=== PATIENT | male | born 1945 | race Caucasian/White ===

== ENCOUNTER 2016-10-06 10:53 | Outpatient (CLI) | payer MEDICARE, BC ==
[~2016-10-06] VITALS: Ht 170.2 cm; Wt 113.6 kg
--- NOTE | ~2016-10-06 | HEMODYNAMI ---
PATIENT:IONA GREER MEDICAL RECORD: [id number] : 49 LOCATION:D.CAT ADMISSION DATE: 10/06/16 Generatedon:10/06/201613:47 Patient name: IONA GREER Patient #: [id number] : 1945 Date of study: 10/06/2016 Page: Of Hemodynamic Procedure Report Patient Data Patient Demographics Procedure consent was obtained First Name: IONA Gender: Male Last Name: ZOEY : 1945 [facility] Initial: S Age: 71 year(s) Patient #: [id number] Race: SSN: [id number] Additional ID: [id number] Contact details Address: [address] [place] [address] [address] State: [place] City: [place] Zip code: [address] Admission Admission Data Admission Date: 10/06/2016 Admission Time: 10:53 Arrival Date: 10/06/2016 Arrival Time: 13:00 Admit Source: Other Insurance Payor: Medicare Height (in.): 67 BSA: 2.28 (m2) Height (cm.): 170.18 BMI: 41.66 (kg/m2) Weight (lbs.): 266 Weight (kg.): 120.66 Lab Results Lab Result Date: 10/06/2016 Lab Result Time: 0:00 Biochemistry Name Units Result Min Max BUN mg/dl 42 --(----)-* 7 18 Creatinine mg/dl 1.8 --(----)-* 0.6 1.3 CBC Name Units Result Min Max Hemoglobin g/dl 15.7 --(--*-)-- 13.5 17.5 Procedure Procedure Types Cath Procedure Diagnostic Procedure C [facility] w/Coronaries Miscellaneous Procedures Moderate Sedation up to 30 minutes Procedure Description Procedure Date Procedure Date: 10/06/2016 Procedure Start Time: 13:30 Procedure End Time: 13:45 Procedure Staff Name Function Micha Chaparro MD Performing Physician Peyton Keyes RT Scrub Christian Seals RN Nurse Ami Matthews RT Monitor Indication Angina Procedure Data Cath Procedure Fluoroscopy Diagnostic fluoroscopy Total fluoroscopy Time: 1.4 time: 1.4 min min Diagnostic fluoroscopy Total fluoroscopy dose: dose: 261.6 mGy 261.6 mGy Contrast Material Contrast Material Type Amount (ml) Isovue 370 51 Entry Location Entry Primary Successful Side Size Upsize Upsize Entry Closure Alexandre ccessful Closure Location (Fr) 1 (Fr) 2 (Fr) Remarks Device Remarks Radial Right 6 Fr Mechanical artery Short Compression Estimated blood loss: 5 ml Diagnostic catheters Device Type Used For End Catheter Placement Terumo 5Fr Anthony 110cm Multi-vessel catheter Angiography Procedure Complications No complications Procedure Medications Medication Administration Route Dosage Oxygen NC 2 l/min 0.9% NaCl I.V. 100 ml/hr Heparin Flush Bag added to field 2 bags (1000units/500ml NS) Lidocaine 2% added to field 20 Radial Cocktail added to field 1 syringe (Verapomil 2mg/Nitro 400mcg/Heparin 1500units) Versed I.V. 1 mg Fentanyl I.V. 50 mcg Radial Cocktail I.A. 1 syringe (Verapomil 2mg/Nitro 400mcg/Heparin 1500units) Versed I.V. 1 mg Fentanyl I.V. 50 mcg Hemodynamics Rest BSA: 2.28 (m2) HGB: 15.7 (g/dl) O2 Consumption: Estimated: 260.52 (ml/min) O2 Co nsumption indexed: Estimated:114.26 (ml/min/m) Heart Rate: 66 (bpm) Pressure Samples Time Site Value (mmHg) Purpose Heart Use Rate(bpm) 13:34 LV 114/3,16 Snapshot 70 13:35 AO 99/61(75) Pullback 74 13:35 LV 120/2,17 Pullback 74 Gradients Valve Time Site 1 Site 2 Mean SEP/DFP Peak To Heart Use (mmHg) (sec/min) Peak Rate (mmHg) (bpm) Aortic 13:35 LV AO 17 8 21 74 120/2,17 99/61(75) Calculations Valve P-P Mean Valve Index Valve Source Name Gradient Area Flow (cm2) Aortic 21 17 21 17 Snapshots Pre Cath Intra NCS Post Cath Vital Signs Time Heart Resp SPO2 NIBP (mmHg) Rhythm Pain Sedation Rate (ipm) (%) Status Level (bpm) 13:16:58 75 15 96 141/82(119) NSR 0 (11) 10(A) , No pain 13:21:22 64 16 94 130/72(109) NSR 0 (11) 10(A) , No pain 13:25:43 66 13 90 120/70(97) NSR 0 (11) 10(A) , No pain 13:30:05 65 16 93 118/69(96) NSR 0 (11) 9(A) , No pain 13:34:25 71 18 91 105/61(85) NSR 0 (11) 9(A) , No pain 13:38:41 69 14 91 112/68(94) NSR 0 (11) 9(A) , No pain 13:42:59 69 20 92 124/72(105) NSR 0 (11) 10(A) , No pain Medications Time Medication Route Dose Verified Delivered Reason Notes Eff ectiveness by by 13:15:57 Oxygen NC 2 l/min Imcha Buffie used for Shankar Seals RN procedure 13:16:15 0.9% NaCl I.V. 100 Micha Buffie used for ml/hr Shankar Seals director river restoration 13:16:35 Heparin Flush added 2 bags Micha Buffie used for Bag to Shankar Seals RN procedure (1000units/500ml field NS) 13:16:47 Lidocaine 2% added 20ml Micha Buffie used for to vial Shankar Seals director river restoration field 13:16:57 Radial Cocktail added 1 Micha Buffie used for (Verapomil to syringe Shankar Seals RN procedure 2mg/Nitro field 400mcg/Heparin 1500units) 13:24:31 Fentanyl I.V. 50 mcg Buffie Buffie for Bozena Seals RN sedation 13:24:54 Versed I.V. 1 mg Buffie Buffie for Bozena RN Seals RN sedation 13:33:58 Radial Cocktail I.A. 1 Micha Micha used for (Verapomil syringe Shankar Chaparro MD procedure 2mg/Nitro 400mcg/Heparin 1500units) 13:35:44 Versed I.V. 1 mg Buffie Buffie for Bozena RN Seals RN sedation 13:35:50 Fentanyl I.V. 50 mcg Buffie Buffie for Seals RN Seals RN sedation Procedure Log Time Note 12:50:49 Buffie Seals RN sent for patient. Start room use. 13:01:11 Informed consent obtained and on chart 13:01:14 Diagnostic Cath Status : Elective 13::34 Indication : Angina 13:01:53 Patient Height : 170.18 cm 13:02:44 Patient Weight : 120.66 kg 13:02:50 Admit Source: Other 13:03:28 Arrival Date: 10/06/2016 1:00:00 PM 13:03:36 Insurance Payor : Medicare 13:07: Lab Result : Hemoglobin 15.7 g/dl 13:: Lab Result : BUN 42 mg/dl 13:: Lab Result : Creatinine 1.8 mg/dl 13::30 Time tracking: Regular hours 13::34 Plan of Care:Hemodynamics will remain stable., Cardiac rhythm will remain stable., Comfort level will be maintained., Respiratory function will remain adequate., Patient/ family verbilizes understanding of procedure., Procedure tolerated without complication., Recovers from procedure without complications.. 13:15:40 Vital chart was started 13:15:57 Oxygen 2 l/min NC was administered by Christian Seals RN; used for procedure; 13:16:15 0.9% NaCl 100 ml/hr I.V. was administered by Christian Seals RN; used for procedure; 13:16:35 Heparin Flush Bag (1000units/500ml NS) 2 bags added to field was administered by Christian Seals RN; used for procedure; 13:16:47 Lidocaine 2% 20ml vial added to field was administered by Christian Seals RN; used for procedure; 13:16:57 Radial Cocktail (Verapomil 2mg/Nitro 400mcg/Heparin 1500units) 1 syringe added to field was administered by Christian Seals RN; used for procedure; 13:22:44 Patient received from Pre/Post Procedure Room to [facility] 3 Alert and oriented. Tansferred to table in Supine position. 13:22:45 Warm blankets applied, and chinmay hugger turned on for patient comfort. 13:22:46 Correct patient and procedure confirmed by team. 13:22:46 ECG and BP/O2 sat monitors applied to patient. 13:22:48 Baseline sample Acquired. 13:22:52 Rhythm: sinus rhythm 13:22:54 Full Disclosure recording started 13:23:06 H&P Date Dictated: 09/14/2016 Within 30 days and on chart., H&P Addendum completed by physician on day of procedure. (MUST COMPLETE FOR ALL OUTPATIENTS). 13:23:07 Pre-procedure instructions explained to patient. 13:23:08 Pre-op teaching completed and patient verbalized understanding. 13:23:09 Family in waiting room. 13:23:10 Patient NPO since Midnight. 13:23:18 Is the patient allergic to Iodine/contrast media? No. 13:23:22 Was the patient premedicated? No 13:23:56 Is patient on blood thinner?No 13:23:59 Patient diabetic? Yes. 13:24:00 If diabetic: On Metformin? Yes 13:24:05 If on Metformin: Last Dose? 10/03/2016 13:24:09 Previous problem with sedation/anesthesia? No ? 13:24:12 Snore? Yes 13:24:13 Sleep apnea? Yes 13:24:13 Deviated septum? No 13:24:15 Opens mouth fully? Yes 13:24:16 Sticks out tongue? Yes 13:24:18 Airway obstruction? No ? 13:24:21 Dentures? No ? 13:24:24 Injector settings: Ml/sec: 5, Volume: 15, 13:24:25 Pre procedure: right dorsailis pedis pulse 1+ Palpable, but thready & weak; easily obliterated 13:24:27 Patient pain scale 0/10 ?. 13:24:31 Fentanyl 50 mcg I.V. was administered by Christian Seals RN; for sedation; 13:24:35 IV patent on arrival in left forearm with 0.9% NaCl at KVO. 13:24:37 Lab results completed and on chart. 13:24:42 Right Radial & Right Groin area was prepped with chlora-prep and draped in sterile fashion 13:24:43 Alarms reviewed by R. N. 13:24:44 Sharps counted by scrub and verified by R.N. 13:24:46 Physician arrived 13:24:46 --------ALL STOP TIME OUT------ 13:24:46 Final Timeout: patient, procedure, and site verified with staff and physician. All members of the team are in agreement. 13:24:49 Right Radial & Right Groin site verified by team. 13:24:53 Physical assessment completed. ASA score P 2 - A patient with mild systemic disease as per Micha Chaparro MD. 13:24:54 Versed 1 mg I.V. was administered by Christian Seals RN; for sedation; 13:24:57 Sedation plan: IV Moderate Sedation Versed, Fentanyl 13:25:00 Use device set Radial Dx 13:25:01 Acist Syringe opened to sterile field. 13:25:02 Medline Cath Pack opened to sterile field. 13:25:02 Bag Decanter opened to sterile field. 13:25:03 Terumo 6Fr Slender Glidesheath opened to sterile field. 13:25:03 St Alexander 260cm J .035 wire opened to sterile field. 13:25:03 Acist Hand Control opened to sterile field. 13:25:04 Acist Manifold opened to sterile field. 13:25:04 Tegaderm 4 x 4 opened to sterile field. 13:25:05 MBrace Wrist Support opened to sterile field. 13:30:11 Procedure started. 13:30:18 Local anesthetic to right radial artery with Lidocaine 2% by Micha Chaparro MD.INITIAL ACCESS ONLY 13:31:01 Zero performed for pressure channel P1 13:33:13 A 6 Fr Short sheath was inserted into the Right Radial artery 13:33:23 A Terumo 5Fr Anthony 110cm catheter was advanced over the wire and used for Multi-vessel Angiography. 13:33:58 Radial Cocktail (Verapomil 2mg/Nitro 400mcg/Heparin 1500units) 1 syringe I.A. was administered by Micha Chaparro MD; used for procedure; 13:34:20 LV hemodynamics recorded. 13:34:22 LV gram done using [place] 13:34:41 EF : 60 % 13:35:27 LCA angiography performed. 13:35:29 Injector settings: Ml/sec: 3, Volume: 6, 13:35:44 Versed 1 mg I.V. was administered by Christian Seals RN; for sedation; 13:35:50 Fentanyl 50 mcg I.V. was administered by Christian Seals RN; for sedation; 13:39:44 RCA angiography performed. 13:39:49 Injector settings: Ml/sec: 3, Volume: 6, 13:40:42 Catheter removed. 13:41:11 Terumo TR Band Large opened to sterile field. 13:42:50 Sheath removed intact; hemostasis achieved with Mechanical Compression to the Right Radial artery. 13:43:05 Procedure ended.(Physican Out) 13:44:10 Fluoroscopy time 01.40 minutes. 13:44:27 Fluoroscopy dose: 261.6 mGy 13:44:27 Flurop Dose total: 261.6 13:44:30 Contrast amount:Isovue 370 51ml. 13:44:31 Sharps counted by scrub and verified by R.N. 13:44:33 TR band inflated with 10cc of air. 13:44:35 Insertion/operative site no bleeding no hematoma. 13:44:39 Post right radial artery:stable 13:44:40 Post Procedure Pulses reassessed and unchanged 13:44:43 Post procedure rhythm: unchanged. 13:44:45 Estimated blood loss: 5 ml 13:44:53 Post procedure instruction explained to patient.Patient verbalizes understanding. 13:44:54 Patient needs reinforcement of post procedure teaching. 13:45:08 Procedure type changed to Cath procedure, Diagnostic procedure, LHC, LHC w/Coronaries, Miscellaneous Procedures, Moderate Sedation up to 30 minutes 13:45:10 Procedure and supply charges have been captured, reviewed, submitted and are correct. 13:45:22 Procedure Complication : No complications 13:45:25 Vital chart was stopped 13:45:25 See physician's report for complete and final results. 13:45:28 Report given to Pre/Post Procedure Room. 13:45:31 Patient transfered to Pre/Post Procedure Room with Stretcher. 13:45:36 Procedure ended. 13:45:36 Full Disclosure recording stopped 13:45:40 End room use (Document Last) Device Usage Item Name Manufacture Quantity Catalog Hospital Part Current Minimal Lot# / Number Charge Number Stock Stock Serial# Code Acist Acist 1 08559 927306 229309 [id number] 20 Syringe Medical [employer] Inc Medline Cardinal 1 [id number] 69858 213069 5 Cath Pack Health Bag Microtek 1 2001S [id number] 05988 427419 5 Cold Crate [employer] Terumo 6Fr Terumo 1 [id number] 078979 767217 475860 [address] St Alexander 1 787147 339423 509513 487556 30 260cm J .035 wire Acist Hand Acist 1 84560 039087 876062 063369 5 Control Medical Systems Inc Acist Acist 1 80907 628931 394912 848020 5 Manifold Medical Systems Inc Tegaderm 4 3M 1 1626W 752866 946248 656903 5 x 4 MBrace Advanced 1 140-0250-00 148290 83911 287787 5 Wrist Vascular Support Dynamics Terumo 5Fr Terumo 1 36-4499 853485 097627 122061 5 Anthony 110cm catheter Terumo TR Terumo 1 MLO65-LAN 341707 166589 503913 40 Band Large Signature Audit [place] Stage Time Signature Unsigned Intra-Procedure 10/06/2016 Ami Matthews 1:46:59 PM RT(R) Signatures Monitor : Ami Matthews RT Signature : Date : Time : [facility] [address] [place] [address]
[2016-10-06] MEDS ORDERED: LOPID600 MG PO (11:11)
[2016-10-06] MEDS ORDERED: GLUCOPHAGE850 MG PO (11:12)
[2016-10-06] MEDS ORDERED: TOPROL XL100 MG PO (11:13)
[2016-10-06] MEDS ORDERED: K-DUR20 MEQ PO (11:13)
[2016-10-06] MEDS ORDERED: BUPROPION XL150 MG PO (11:13)
[2016-10-06] MEDS ORDERED: DIOVAN HCT 160/1 TAB PO ×2 (11:14→14:50)
[2016-10-06] MEDS ORDERED: FUROSEMIDE40 MG PO (11:14)
[2016-10-06] MEDS ORDERED: AMBIEN10 MG PO (11:14)
[2016-10-06] MEDS ORDERED: PRAVACHOL40 MG PO (11:15)
[2016-10-06] MEDS ORDERED: ZYLOPRIM300 MG PO (11:15)
[2016-10-06] MEDS ORDERED: LEXAPRO20 MG PO (11:15)
[2016-10-06] MEDS ORDERED: INVOKANA300 MG PO (11:16)
[2016-10-06] MEDS ORDERED: BAYER CHEWABLE81 MG PO (11:16)
[2016-10-06] MEDS ORDERED: OMEPRAZOLE20 M1 PO (11:16)
[2016-10-06] MEDS ORDERED: MOBIC7.5 MG PO (11:16)
[2016-10-06] MEDS ORDERED: PROBIOTIC1 EAC1 PO (11:17)
[2016-10-06] MEDS ORDERED: ATIVAN0.5 MG PO (11:17)
[2016-10-06] MEDS ORDERED: NOVOLIN 70/30 110 ML SC (11:18)
[2016-10-06 11:20] VITALS: BP 125/54; Ht 170.2 cm; Wt 113.6 kg
[2016-10-06 11:35] LABS: BASOPHILS 0.7 % (0-2); HEMATOCRIT 45.6 % (42.0-54.0); HEMOGLOBIN 15.7 g/dL (13.5-17.5); IMMATURE GRANULOCYTES 0.4 % (0-5); LYMPHOCYTES 22.9 % (15-50); MCH 32.2 pg (26.0-34.0); MCHC 34.4 g/dL (31.0-37.0); MCV 93.6 fL (80.0-100.0); MEAN PLATELET VOLUME 10.3 fL (7.4-10.4); MONOCYTES 8.6 % (2-11); NEUTROPHILS 63.4 % (40-80); PLATELET COUNT 237 10x3/uL (130-400); RBC 4.87 10x6/uL (4.20-6.10); RDW 14.8 % (11.5-14.5)
[2016-10-06 11:38] LABS: ANION GAP 14.4 mmol/L (8-16); CALCIUM 8.9 mg/dL (8.5-10.1); CARBON DIOXIDE 25.6 mmol/L (21.0-32.0); CREATININE - SERUM 1.8 mg/dL (0.6-1.3)
--- NOTE | 2016-10-06 15:00 | NUR ---
1500 RIGHT WRIST TR BAND CDI, NO BLEEDING OR HEMATOMA NOTED. BEND DEFLATION UNDERWAY. PT STATES ITCHING IS RESOLVED AFTER PEPCID ADMINISTRATION. SOLUMEDROL REFUSED BY PT/ FAMILY STATES ELEVATES HIS BLOOD SUGARS. PT DENIES ANY C/O CHEST DISCOMFORT. CONTINUE POC.
--- NOTE | 2016-10-06 15:05 | NUR ---
1415 LYING FLAT, RESTING WITH EYES CLOSED. NC 2L APPLIED WHILE SLEEPING. NSR RATE 63 WNO C/O CHEST PAIN. PULSES PALP X 4. R WRIST TR BAND C/D/I WITH NO HEMATOMA OR BLEEDING. 1430 PATIENT BEGINNING TO "ITCH" ALL OVER, NO OBVIOUS RASH PRESENT. DR. MERAZ NOTIFIED. 20MG PEPCID IV GIVEN. 1445 ITCHING SEEMS TO BE BETTER. R WRIST TR BAND C/D/I WITH NO HEMATOMA OR BLEEDING.
--- NOTE | 2016-10-06 16:15 | NUR ---
1600 TR BAND DEFLATION IS COMPLETE, 2X2 AND TEGADERM PALCED TO CATH SITE. NO BLEEDING OR HEMATOMA NOTED. 1615 IV DC'D WITH CATH INTACT. PT IS DRESSING FOR DC TO HOME.
--- NOTE | 2016-10-06 17:03 | NUR ---
1630 PT HAS AMBULATED TO THE BATHROOM AND VOIDED QS. DRESSING TO CATH SITE REMAINS CDI. PT DENIES ANY C/O CHEST DISCOMFORT. REVIEWED DC INSTRUCTIONS WITH PT AND FAMILY WHO VERBALIZE UNDERSTANDING. PT ESCORTED TO PRIVATE AUTO VIA WC BY STAFF WITH SON DRIVING HIM HOME.
--- NOTE | 2016-10-08 08:04 | OP ---
PATIENT NAME: GIANNA GREER MEDICAL RECORD: [id number] :49 LOCATION:D.CAT ADMISSION DATE: SURGEON: KANDI MERAZ M.D. DATE OF OPERATION: 10/06/2016 Catheterization Report REFERRING PHYSICIAN: Dr. Michael Swan at [place], [place]. PROCEDURES PERFORMED: 1. Selective coronary angiography. 2. Left heart catheterization with ventriculogram. INDICATION: A 71-year-old gentleman, who presents with symptoms of dyspnea on exertion. Recent Cardiolite stress test revealed inferior wall ischemia. EQUIPMENT USED: A 5-Lao Anthony catheter. TECHNIQUE: A 6-Lao sheath was inserted in retrograde fashion in the right radial artery. Next, selective coronary angiography was performed in standard 5-Lao Anthony catheter. Left heart catheterization was performed using the Anthony catheter as well. CORONARY ANATOMY: 1. Left main: Left main trunk is moderate in caliber. It gives rise to the LAD and circumflex. There is no obstruction. 2. LAD: This is a moderate caliber vessel extending to the apex. In some views, it appears to have at least 60% stenosis involving the mid segment. 3. Circumflex: This vessel is quite large in caliber and dominant. It supplies a large lateral branch in mid segment. The bifurcation point, there appears to be a smooth 40% stenosis in the continuation of the circumflex. 4. Right coronary: This vessel is small in caliber and nondominant. It is angiographically normal in the proximal segment. 5. Left ventricle: Left ventricle is normal in size and function. No wall motion abnormalities are seen. Estimated ejection fraction is 60%. IMPRESSION: 1. Moderate disease involving the left anterior descending. 2. Normal left ventricular function. RECOMMENDATIONS: His creatinine is 1.8 today. At this point, I will hold his valsartan and likely bring him back in 48 hours and perform IVUS of the LAD to see if this lesion is critical. TRANSINT:[id number] Voice Confirmation ID: [id number] DOCUMENT ID: [id number] KANDI MERAZ M.D. at 0804 CC: [id number] DICTATION DATE: 10/06/16 1348 E MAIL SYSTEM ADMINISTRATOR: 10/06/16 2137 DEP CLI 10/06/[address] [facility] [address] [place] [address]
== END 2016-10-06 16:30 | disposition home or self-care (01) ==
LOC: D.CATH 10:53
PROVIDERS: Internal Medicine Cardiovascular Disease
DX: I25.10 Atherosclerotic heart disease of native coronary artery without angina pectoris (principal); R94.39 Abnormal result of other cardiovascular function study

== ENCOUNTER 2016-10-08 07:01 | Outpatient (CLI) | payer MEDICARE, BC ==
[~2016-10-08] VITALS: Ht 170.2 cm; Wt 113.6 kg
--- NOTE | ~2016-10-08 | OP ---
PATIENT NAME: GIANNA GREER MEDICAL RECORD: [id number] :49 LOCATION:D.CAT ADMISSION DATE: SURGEON: KANDI MERAZ M.D. DATE OF OPERATION: 10/08/2016 Catheterization Report PROCEDURES PERFORMED: 1. Intravascular ultrasound of the LAD. 2. Intravascular ultrasound of the circumflex. INDICATION: A 71-year-old gentleman presents with angina. Recent cardiac catheterization revealed moderate lesions involving the circumflex and LAD. REFERRING PHYSICIAN: Dr. Michael Swan at [place], [place]. EQUIPMENT USED: A 6-New Zealander XB LAD guide, BMW guide wire, intravascular ultrasound catheter. DESCRIPTION OF INTERVENTION: A 6-New Zealander sheath was inserted in retrograde fashion in the right common femoral artery. Next, 100 units per kilogram of heparin was infused. A 6-New Zealander XB LAD guide was advanced and engaged in the left main coronary artery. Injections revealed what appeared to be a long 70% stenosis involving the mid LAD. At this point, the BMW guidewire was placed in the distal aspect of the LAD. The intravascular ultrasound catheter was then advanced to the junction of the distal and apical segment. A pullback was then performed. On pullback, there was a long 80% to 90% stenosis involving the mid LAD. However, at the junction of proximal mid vessel, appeared to be another 80% stenosis, which by angiogram. ____ about 40%. There is quite a bit of circumferential atheroma involving the proximal LAD, which was significantly diseased. At this point, the BMW guidewire was placed down the circumflex. Both the lateral branch and the continuation of circumflex were both underwent intravascular ultrasound. Lateral branch had an ostial 50% stenosis with heavy plaque. However, at the bifurcation point of the lateral branch in the AV circumflex, there was at least an 80% stenosis. On pullback into the proximal circumflex, there was another eccentric 70% stenosis seen as well. IMPRESSION: 1. The LAD has had significant disease from the proximal to junction of the mid distal vessel. There are areas of 70% to 90% throughout this whole area. There is a lot concentric plaque as well. 2. High grade disease involving the bifurcation point of the dominant circumflex including the lateral branch and continuation of the circumflex proper. RECOMMENDATIONS: He has quite a bit of disease involving the proximal mid vessels by intravascular ultrasound. This may be secondary to his diabetes. I think he may do better tank terminal gauger with bypass grafting. At this point, I will review the situation with the patient and his options for bypass versus PTCA. TRANSINT:[id number] Voice Confirmation ID: [id number] DOCUMENT ID: [id number] OPERATIVE REPORT [id number] GIANNA GREER TIMOTHY E M.D. CC: [id number] DICTATION DATE: 10/08/16 1030 SERVICE STATION EQUIPMENT MECHANIC: 10/08/16 1757 DEP CLI 10/08/16 [facility] [id number] [place] [address]
--- NOTE | ~2016-10-08 | HEMODYNAMI ---
PATIENT:GIANNA GREER MEDICAL RECORD: [id number] : 49 LOCATION:[facility] ADMISSION DATE: 10/08/16 Generatedon:10/08/201610:30 Patient name: GIANNA GREER Patient #: [id number] : 1945 Date of study: 10/08/2016 Page: Of Hemodynamic Procedure Report Patient Data Patient Demographics Procedure consent was obtained First Name: GIANNA Gender: Male Last Name: ZOEY : 1945 Middle Initial: S Age: 71 year(s) Patient #: [id number] Race: SSN: [id number] Additional ID: [id number] Contact details [address]: [address] [place] [address] COURT State: [place] City: [place] Zip code: [address] Past Medical History Allergies Allergen Reaction Date Comments Reported Codeine 10/08/2016 Other allergy 10/08/2016 Fentanyl Admission Admission Data Admission Date: 10/08/2016 Admission Time: 7:01 Lab Results Lab Result Date: 10/08/2016 Lab Result Time: 0:00 Biochemistry Name Units Result Min Max Creatinine mg/dl 1.5 --(----)-* 0.6 1.3 CBC Name Units Result Min Max Hemoglobin g/dl 14.7 --(-*--)-- 13.5 17.5 Procedure Procedure Types Cath Procedure Diagnostic Procedure [facility] w/Coronaries FFR/IVUS Intra-Coronary IVUS Initial Intra-Coronary IVUS Additional Miscellaneous Procedures Moderate Sedation up to 30 minutes Procedure Description Procedure Date Procedure Date: 10/08/2016 Procedure Start Time: 9:58 Procedure End Time: 10:29 Procedure Staff Name Function Micha Christine MD Performing Physician Regino Teresa RT Scrub Kemal Estrada RN Nurse Tamika Nunez RT Monitor Christian Seals RN Nurse Procedure Data Cath Procedure Fluoroscopy Diagnostic fluoroscopy Total fluoroscopy Time: 5.9 time: 5.9 min min Diagnostic fluoroscopy Total fluoroscopy dose: 687 dose: 687 mGy mGy Contrast Material Contrast Material Type Amount (ml) Isovue 300 100 Entry Location Entry Primary Successful Side Size Upsize Upsize Entry Closure Succes sful Closure Location (Fr) 1 (Fr) 2 (Fr) Remarks Device Remarks Femoral Right 6 Fr Exoseal artery Short Estimated blood loss: 10 ml Diagnostic catheters Device Type Used For End Catheter Placement Diagnostic Infinity 5Fr Internal mammary IM catheter arteriography Procedure Complications No complications Procedure Medications Medication Administration Route Dosage Oxygen Solumedrol I.V. 60 mg Benadryl I.V. 50 mg 0.9% NaCl I.V. 100 ml/hr Lidocaine 2% added to field 20 Heparin Flush Bag added to field 2 bags (1000units/500ml NS) Versed I.V. 1 mg Demerol I.V. 25 mg Versed I.V. 1 mg Demerol I.V. 25 mg Heparin Bolus I.V. 47857 units Versed I.V. 1 mg Versed I.V. 1 mg Hemodynamics Rest HGB: 14.7 (g/dl) Heart Rate: 61 (bpm) Snapshots Pre Cath Intra NCS Post Cath Vital Signs Time Heart Resp SPO2 etCO2 TC9xkbh NIBP (mmHg) Rhythm Pain Sedation Rate (ipm) (%) (mmHg) (mmHg) Status Level (bpm) 9:41:42 58 16 97 0 0 132/63(107) NSR 0 (11) 10(A) , No pain 9:46:00 59 17 97 0 0 119/70(95) NSR 0 (11) 10(A) , No pain 9:50:16 62 22 96 0 0 129/68(113) NSR 0 (11) 10(A) , No pain 9:54:39 64 16 97 0 0 124/65(98) NSR 0 (11) 9(A) , No pain 9:59:01 62 17 95 0 0 116/62(97) NSR 0 (11) 9(A) , No pain 10:03:15 62 16 95 0 0 119/60(102) NSR 0 (11) 9(A) , No pain 10:07:31 66 17 95 0 0 113/57(86) NSR 0 (11) 9(A) , No pain 10:11:47 63 15 94 0 0 125/61(99) NSR 0 (11) 9(A) , No pain 10:16:03 61 16 93 0 0 116/58(92) NSR 0 (11) 9(A) , No pain 10:20:19 64 16 94 0 0 115/57(100) NSR 0 (11) 9(A) , No pain 10:24:35 63 16 94 0 0 118/63(107) NSR 0 (11) 10(A) , No pain 10:28:51 61 15 94 0 0 118/67(100) NSR 0 (11) 10(A) , No pain Medications Time Medication Route Dose Verified Delivered Reason Notes Effectiveness by by 9:41:16 Oxygen mask cpap Micha Buffie used for from Shankar Seals RN procedure home 9:42:02 0.9% NaCl I.V. 100 Micha Buffie Per physician ml/hr Shankar Seals RN 9:42:44 Solumedrol I.V. 60 mg Micha Buffie Per physician Shankar Seals RN 9:45:55 Benadryl I.V. 50 mg Micha Buffie used for Shankar Seals RN procedure 9:51:09 Lidocaine 2% added 20ml Micha Micha for local to vial Shankar Christine MD anesthetic field 9:51:15 Heparin Flush added 2 bags Micha Micha used for Bag to Shankar Christine MD procedure (1000units/500ml field NS) 9:52:36 Versed I.V. 1 mg Micha Buffie for sedation Shankar Seals RN 9:52:44 Demerol I.V. 25 mg Micha Buffie for sedation Shankar Seals RN 9:55:45 Versed I.V. 1 mg Micha Buffie for sedation Shankar Seals RN 9:55:49 Demerol I.V. 25 mg Micha Buffie for sedation Shankar Seals RN 10:04:08 Heparin Bolus I.V. 11,500 Micha Buffie for verif ied units Shankar Seals RN anticoagulation with dr christine 10:08:08 Versed I.V. 1 mg Micha Buffie for sedation Shankar Seals RN 10:18:48 Versed I.V. 1 mg Micha Buffie for sedation Shankar Seals RN Procedure Log Time Note 9:20:35 Kemal Estrada RN sent for patient. Start room use. 9:20:36 Time tracking: Regular hours 9:20:40 Plan of Care:Hemodynamics will remain stable., Cardiac rhythm will remain stable., Comfort level will be maintained., Respiratory function will remain adequate., Patient/ family verbilizes understanding of procedure., Procedure tolerated without complication., Recovers from procedure without complications.. 9:32:49 Patient received from Pre/Post Procedure Room to CCL 1 Alert and oriented. Tansferred to table in Supine position. 9:32:50 Warm blankets applied, and chinmay hugger turned on for patient comfort. 9:32:51 Correct patient and procedure confirmed by team. 9:32:53 Signed procedure consent form obtained from patient. 9:32:54 ECG and BP/O2 sat monitors applied to patient. 9:40:28 Vital chart was started 9:41:16 Oxygen cpap mask from home was administered by Christian Seals RN; used for procedure; 9:41:46 Rhythm: sinus tachycardia 9:42:02 0.9% NaCl 100 ml/hr I.V. was administered by Christian Seals RN; Per physician; 9:42:11 H&P Date Dictated: 09/09/2016 Within 30 days and on chart., H&P Addendum completed by physician on day of procedure. (MUST COMPLETE FOR ALL OUTPATIENTS). 9:42:12 Pre-procedure instructions explained to patient. 9:42:13 Pre-op teaching completed and patient verbalized understanding. 9:42:14 Family in waiting room. 9:42:17 Patient NPO since Midnight. 9:42:18 Full Disclosure recording started 9:42:44 Solumedrol 60 mg I.V. was administered by Christian Seals RN; Per physician; 9:43:32 Patient allergic to Codeine 9:44:07 Patient allergic to Other allergyFentanyl 9:44:13 Is the patient allergic to Iodine/contrast media? No. 9:44:16 Is patient on blood thinner?No 9:44:19 Patient diabetic? Yes. 9:44:33 If diabetic: On Metformin? No 9:44:36 Previous problem with sedation/anesthesia? No ? 9:44:37 Snore? Yes 9:44:40 Sleep apnea? Yes 9:44:41 Deviated septum? No 9:44:42 Opens mouth fully? Yes 9:44:43 Sticks out tongue? Yes 9:44:45 Airway obstruction? No ? 9:44:46 Dentures? No ? 9:44:49 Pre procedure: right dorsailis pedis pulse 2+ Normal; easily identifiable; not easily obliterated 9:44:51 Patient pain scale 0/10 ?. 9:44:57 IV patent on arrival in right hand with 0.9% NaCl at [facility]. 9:45:23 Lab Result : Creatinine 1.5 mg/dl 9:45:23 Lab Result : Hemoglobin 14.7 g/dl 9:45:28 Lab results completed and on chart. 9:45:30 Right groin area was prepped with chlora-prep and draped in sterile fashion 9:45:32 Alarms reviewed by R. N. 9:45:32 Sharps counted by scrub and verified by R.N. 9:45:35 Use device set Femoral PCI 9:45:36 Acist Syringe opened to sterile field. 9:45:37 Acist Hand Control opened to sterile field. 9:45:37 Bag Decanter opened to sterile field. 9:45:38 Medline Cath Pack opened to sterile field. 9:45:38 Terumo 6Fr [place] Sheath opened to sterile field. 9:45:39 St Alexander 260cm J .035 wire opened to sterile field. 9:45:39 Merit BasixCompak Inflation Kit opened to sterile field. 9:45:39 Acist Manifold opened to sterile field. 9:45:40 Tegaderm 4 x 4 opened to sterile field. 9:45:50 Alma Guid[place]le Eagleye IVUS Catheter opened to sterile field. 9:45:51 Moeller BMW Eden 2 J-tip 300cm 0.014 guide wir opened to sterile field. 9:45:55 Benadryl 50 mg I.V. was administered by Christian Seals RN; used for procedure; 9:46:43 Final Timeout: patient, procedure, and site verified with staff and physician. All members of the team are in agreement. 9:46:45 Right groin site verified by team. 9:46:48 Physical assessment completed. ASA score P 2 - A patient with mild systemic disease as per Micha Christine MD. 9:46:51 Sedation plan: IV Moderate Sedation Versed, Fentanyl 9:51:09 Lidocaine 2% 20ml vial added to field was administered by Micha Christine MD; for local anesthetic; 9:51:15 Heparin Flush Bag (1000units/500ml NS) 2 bags added to field was administered by Micha Christine MD; used for procedure; 9:51:32 Baseline sample Acquired. 9:52:36 Versed 1 mg I.V. was administered by Christian Seals RN; for sedation; 9:52:44 Demerol 25 mg I.V. was administered by Christian Seals RN; for sedation; 9:55:33 Cordis 6FR XBLAD 3.5 guide catheter opened to sterile field. 9:55:45 Versed 1 mg I.V. was administered by Christian Seals RN; for sedation; 9:55:49 Demerol 25 mg I.V. was administered by Christian Seals RN; for sedation; 9:55:50 Zero performed for pressure channel P1 9:55:56 Zero performed for pressure channel P1 9:58:13 Procedure started. 9:58:16 Local anesthetic to right femoral artery with Lidocaine 2% by Micha Christine MD.INITIAL ACCESS ONLY 10:01:21 A 6 Fr Short sheath was inserted into the Right Femoral artery 10:01:34 6 Fr XBLAD 3.5 guide catheter was inserted over the wire 10:04:08 Heparin Bolus 11,500 units I.V. was administered by Christian Seals RN; for anticoagulation; verified with dr christine 10:04:17 BMW wire advanced. 10:05:58 IVUS catheter advanced over wire. 10:08:08 Versed 1 mg I.V. was administered by Christian Seals RN; for sedation; 10:09:25 IVUS pass to LAD lesion performed. 10:09:46 Wire redirected to Circ. 10:11:47 IVUS pass to Circ lesion performed. 10:11:57 Wire redirected to AV Circ. 10:14:38 IVUS of the AV Circ performed. 10:14:40 IVUS catheter removed over wire. 10:17:13 Wire removed. 10:17:14 Guide catheter removed. 10:18:09 A Diagnostic Infinity 5Fr IM catheter was advanced over the wire and used for Internal mammary arteriography.Evaluate for CABG. 10:18:48 Versed 1 mg I.V. was administered by Christian Seals RN; for sedation; 10:19:52 Procedure type changed to Cath procedure, Diagnostic procedure, LHC, LHC w/Coronaries, FFR/IVUS, Intra-Coronary IVUS Initial, Intra-Coronary IVUS Additional, Miscellaneous Procedures, Moderate Sedation up to 30 minutes 10:20:04 Catheter removed. 10:20:20 Cordis 6Fr Exoseal opened to sterile field. 10:22:20 Sheath removed intact; hemostasis achieved with Exoseal to the Right Femoral artery. 10:22:22 Procedure ended.(Physican Out) 10:22:45 Fluoroscopy time 05.90 minutes. 10:22:49 Flurop Dose total: 687 10:22:49 Fluoroscopy dose: 687 mGy 10:22:56 Contrast amount:Isovue 300 100ml. 10:22:58 Sharps counted by scrub and verified by R.N. 10:22:59 Insertion/operative site no bleeding no hematoma. 10:23:02 Post-op/insertion site Right Femoral artery dressed using a 4 x 4 and Tegaderm. 10:23:06 Post right femoral artery:stable, clean and dry 10:23:07 Post Procedure Pulses reassessed and unchanged 10:23:10 Post-procedure physical assessment completed. ASA score P 2 - A patient with mild systemic disease as per Micha Christine MD. 10:23:13 Post procedure rhythm: unchanged. 10:23:18 Estimated blood loss: 10 ml 10:23:19 Post procedure instruction explained to patient.Patient verbalizes understanding. 10:23:20 Patient needs reinforcement of post procedure teaching. 10:23:27 Procedure Complication : No complications 10:23:29 See physician's report for complete and final results. 10:24:06 High Pressure Extension Tubing (Christine) opened to sterile field. 10:24:54 Procedure and supply charges have been captured, reviewed, submitted and are correct. 10:29:14 Vital chart was stopped 10:29:18 Report given to Pre/Post Procedure Room. 10:29:33 Patient transfered to Pre/Post Procedure Room with Stretcher. 10:29:41 Procedure ended. 10:29:41 Full Disclosure recording stopped 10:29:49 End room use (Document Last) Device Usage Item Name Manufacture Quantity Catalog Hospital Part Current Minimal L ot# / Number Charge Number Stock Stock Serial# Code Acist Acist 1 67263 600789 677268 889681 20 Syringe Medical Systems Inc Acist Hand Acist 1 09198 385400 845206 187720 5 Control Medical Systems Inc Bag Microtek 1 2002S 664917 11364 022251 5 Decanter Medical Inc. Medline Cardinal 1 [id number] 432990 35407 326341 5 Cath Pack Health Terumo 6Fr Terumo 1 [id number] 558200 038490 396028 [address] Alexander 1 047970 577305 524526 716254 30 260cm J .035 wire Merit Merit 1 [id number] 486525 614151 090799 15 BasixCompak Medical Inflation Kit Acist Acist 1 95070 592629 798133 111391 5 Manifold Medical Systems Inc Tegaderm 4 3M 1 1626W 962130 385674 720961 5 x 4 Alma Alma 1 [id number] 734899 200572 576335 8 [place] Eagleye IVUS Catheter Moeller BMW Moeller 1 [id number] 168852 056854 315597 5 Eden 2 Vascular J-tip 300cm 0.014 guide wir Cordis 6FR Cardinal 1 [id number] 843454 867552 941374 10 XBLAD 3.5 Health guide catheter Diagnostic Cardinal 1 [id number] 703689 797762 627206 5 Infinity Health 5Fr IM catheter Cordis 6Fr Cardinal 1 EX600 631361 613421 993484 10 Helmi Technologies Health High Merit 1 [id number] 758389 87204 480206 10 Pressure Medical Extension Tubing (Christine) Signature Audit [place] Stage Time Signature Unsigned Intra-Procedure 10/08/2016 Tamika 10:30:16 AM Counts RT(R) Signatures Monitor : Tamika Signature : Counts RT Date : Time : [id number] [place] [address]
[~2016-10-08 07:01] MED LIST: AMBIEN10 MG PO; ATIVAN0.5 MG PO; BAYER CHEWABLE81 MG PO; BUPROPION XL150 MG PO; DIOVAN HCT 160/1 TAB PO; FUROSEMIDE40 MG PO; GLUCOPHAGE850 MG PO; INVOKANA300 MG PO; K-DUR20 MEQ PO; LEXAPRO20 MG PO; LOPID600 MG PO; MOBIC7.5 MG PO; NOVOLIN 70/30 110 ML SC; OMEPRAZOLE20 M1 PO; PRAVACHOL40 MG PO; PROBIOTIC1 EAC1 PO; TOPROL XL100 MG PO; ZYLOPRIM300 MG PO
[2016-10-08 07:35] VITALS: BP 144/65; Ht 170.2 cm; Wt 113.6 kg
[2016-10-08 07:55] LABS: BASOPHILS 0.6 % (0-2); EOSINOPHILS 4.4 % (0-7); HEMATOCRIT 44.1 % (42.0-54.0); HEMOGLOBIN 14.7 g/dL (13.5-17.5); IMMATURE GRANULOCYTES 0.3 % (0-5); LYMPHOCYTES 29.1 % (15-50); MCH 31.6 pg (26.0-34.0); MCHC 33.3 g/dL (31.0-37.0); MCV 94.8 fL (80.0-100.0); NEUTROPHILS 56.6 % (40-80); PLATELET COUNT 200 10x3/uL (130-400); RBC 4.65 10x6/uL (4.20-6.10); RDW 14.7 % (11.5-14.5); WBC 6.7 10x3/uL (4.8-10.8)
[2016-10-08 08:12] LABS: CALCIUM 9.4 mg/dL (8.5-10.1); CARBON DIOXIDE 23.3 mmol/L (21.0-32.0); CREATININE - SERUM 1.5 mg/dL (0.6-1.3); POTASSIUM - SERUM 4.3 mmol/L (3.5-5.1)
--- NOTE | 2016-10-08 10:51 | NUR ---
1040 RECEIVED PT FROM [employer]. PT SLEEPING BUT AWAKENS EASILY TO VERBAL STIMULI. PT DENIES ANY C/O PAIN OR NAUSEA. IV PATENT AND BICARB DRIP INFUSING PER ORDERS. DRESSING TO RIGHT GROIN IS CDI, NO BLEEDING OR HEMATOMA NOTED. PEDAL PULSES ARE PALPABLE. VSS, RR EVEN AND UNLABORED. PT ON OWN CPAP, SAT IS 96%.
--- NOTE | 2016-10-08 11:30 | NUR ---
6 FR EXOSEAL R/GROIN CDI NO BLEEDING NO HEMATOMA NOTED. VSS WITH CHEST PAIN DENIED WILL MONITOR
--- NOTE | 2016-10-08 12:13 | NUR ---
6 FR EXOSEAL R/GROIN CDI NO BLEEDING NO HEMATOMA NOTED. SANDWICH AND SODA TO BEDSIDE WITH NEEDS PROVIDED. CHEST PAIN DENIED
--- NOTE | 2016-10-08 13:12 | NUR ---
1310 PT SLEEPING, RR EVEN AND UNLABORED. PT WEARING CPAP. DRESSING TO RIGHT GROIN IS CDI, NO BLEEDING OR HEMATOMA NOTED. AREA IS SOFT AND NONTENDER. PEDAL PULSES PALPABLE. NO FAMILY AT BEDSIDE AT THIS TIME. WILL CONTINUE TO MONITOR.
--- NOTE | 2016-10-08 14:35 | NUR ---
1340 HOB ELEVATED TO 45 DEGREES, RIGHT GROIN DRESSING CDI, NO BLEEDING OR HEMATOMA NOTED. PT EATING SANDWICH. DENIES ANY C/O. FAMILY AT BEDSIDE. 1400 IV DC'D WITH CATH INTACT. PT DRESSING FOR DC TO HOME. PT DENIES ANY C/O. 1420 REVIEWED DC INSTRUCTIONS WITH PT WHO VERBALIZES UNDERSTANDING. PT ESCORTED TO PRIVATE AUTO VIA WC BY STAFF WITH DRIVING HIM HOME.
== END 2016-10-08 14:20 | disposition home or self-care (01) ==
LOC: D.CATH 07:01
PROVIDERS: Internal Medicine Cardiovascular Disease
DX: I25.10 Atherosclerotic heart disease of native coronary artery without angina pectoris (principal); R06.02 Shortness of breath; I10 Essential (primary) hypertension; R53.83 Other fatigue; R42 Dizziness and giddiness; R26.0 Ataxic gait; E11.9 Type 2 diabetes mellitus without complications; Z01.812 Encounter for preprocedural laboratory examination

== ENCOUNTER → 2016-10-12 12:12 | Outpatient (CLI) | payer MEDICARE, BC ==
[2016-10-08 07:35] VITALS: BMI 39.2
== END | disposition home or self-care (01) ==
LOC: D.LAB 12:12
DX: Z01.812 Encounter for preprocedural laboratory examination (principal)

== ENCOUNTER 2016-10-14 21:31 | Inpatient (IN) | payer MEDICARE, BC ==
[~2016-10-14] VITALS: Ht 170.2 cm; Wt 120.9 kg
[2016-10-14 22:31] LABS: BASOPHILS 0.4 % (0-2); EOSINOPHILS 2.6 % (0-7); HEMATOCRIT 44.8 % (42.0-54.0); HEMOGLOBIN 15.5 g/dL (13.5-17.5); IMMATURE GRANULOCYTES 0.3 % (0-5); LYMPHOCYTES 25.7 % (15-50); MCH 32.4 pg (26.0-34.0); MCHC 34.6 g/dL (31.0-37.0); MCV 93.5 fL (80.0-100.0); MEAN PLATELET VOLUME 10.5 fL (7.4-10.4); MONOCYTES 7.7 % (2-11); NEUTROPHILS 63.3 % (40-80); PLATELET COUNT 218 10x3/uL (130-400); RBC 4.79 10x6/uL (4.20-6.10); RDW 14.7 % (11.5-14.5); WBC 10.1 10x3/uL (4.8-10.8)
[2016-10-14 22:56] LABS: ALBUMIN 3.5 g/dL (3.4-5.0); ALKALINE PHOSPHATASE 141 U/L (46-116); CALC OSMOLALITY 291 mosm/kg (275-300); CALCIUM 8.1 mg/dL (8.5-10.1); CARBON DIOXIDE 23.5 mmol/L (21.0-32.0); CHLORIDE - SERUM 100 mmol/L (98-107); CHOL - HDL RATIO 9.7 ratio (2.3-4.9); CHOLESTEROL, TOTAL 164 mg/dL (0-200); CKMB 1.3 U/L (0.0-3.6); CREATINE KINASE 122 UL (21-232); CREATININE - SERUM 1.8 mg/dL (0.6-1.3); GLUCOSE 212 mg/dL (74-106); HDL CHOLESTEROL 17 mg/dL (32-96); POTASSIUM - SERUM 3.3 mmol/L (3.5-5.1); PROTEIN - SERUM 7.6 g/dL (6.4-8.2); SODIUM 138 mmol/L (136-145); TROPONIN-I < 0.017 ng/mL (0.000-0.060); UREA NITROGEN 41 mg/dL (7-18); eGFR NON AFRICAN AMERICAN 40 mL/min (90-120)
[2016-10-14 22:57] LABS: ALT (SGPT) 36 U/L (10-68); TRIGLYCERIDE 928 mg/dL (30-200)
[2016-10-15] VITALS (30 sets, daily range): BP systolic 98–165; BP diastolic 45–85; Ht 170.2 cm; Wt 120.9 kg
--- NOTE | 2016-10-15 00:40 | NUR ---
PT ARRIVED TO CVICU VIA W/C FROM ER. ACCOMPANIED BY HOSPITAL STAFF AND SON. DX CHEST PAIN. PT HAS HAD NITRO TABS X 2 AND CURRENTLY HAS A NITRO DUR PATCH ON. DENIES PAIN AT THIS TIME. DOES ADMIT HE HAS A "LAVELL ACHE WHERE I DID HAVE PAIN" INITIAL ADMISSION HISTORY AND ASSESSMENT COMPLETED WITH INFORMATION FROM PATIENT AND SON. PT AA0X4. PT CONNECTED TO STANDARD CVICU MONITORS AND ALL ALARMS SET. 18G PIV S/L FLUSHED EASILY
[2016-10-15] MEDS ORDERED: HUMALOG 30100 UNITS/ SC (01:28)
--- NOTE | 2016-10-15 01:40 | NUR ---
SPOKE WITH DR. CHARLTON ABOUT PT BEING ADMITTED UNABLE TO DISCUSS LABS OR MEDS
--- NOTE | 2016-10-15 01:50 | NUR ---
SPOKE WITH AMY RAO APN NOTIFIED HER OF PT'S ADMISSION LAB VALUES, DIET ORDERED AND HOME INSULIN ORDERS. NEW ORDERS RECEIVED AND NOTED. MEETING/EVENT PLANNER NOTIFIED OF NEED FOR KDUR TO TREAT K+ 3.3
--- NOTE | 2016-10-15 02:00 | NUR ---
PT DID BRING HOME CPAP MACHINE AND USING IT
--- NOTE | 2016-10-15 03:00 | NUR ---
SHIFT REASSESSMENT COMPLETED SEE FLOWSHEET
--- NOTE | 2016-10-15 05:00 | NUR ---
PT RESTING WELL RESP REG AND NONLABORED. CONTINUES WITH HOME CPAP WITH 02 2L IN ADDITION
[2016-10-15 07:02] LABS: BASOPHILS 0.8 % (0-2); EOSINOPHILS 3.4 % (0-7); HEMATOCRIT 46.4 % (42.0-54.0); HEMOGLOBIN 15.5 g/dL (13.5-17.5); IMMATURE GRANULOCYTES 0.2 % (0-5); LYMPHOCYTES 23.7 % (15-50); MCH 31.6 pg (26.0-34.0); MCHC 33.4 g/dL (31.0-37.0); MCV 94.5 fL (80.0-100.0); MEAN PLATELET VOLUME 10.3 fL (7.4-10.4); MONOCYTES 9.9 % (2-11); PLATELET COUNT 216 10x3/uL (130-400); RBC 4.91 10x6/uL (4.20-6.10); RDW 14.6 % (11.5-14.5)
[2016-10-15 07:22] LABS: ALBUMIN 3.6 g/dL (3.4-5.0); ANION GAP 13.8 mmol/L (8-16); BILIRUBIN - TOTAL 0.5 mg/dL (0.2-1.3); CALCIUM 8.6 mg/dL (8.5-10.1); CARBON DIOXIDE 27.9 mmol/L (21.0-32.0); CREATININE - SERUM 1.6 mg/dL (0.6-1.3); POTASSIUM - SERUM 3.7 mmol/L (3.5-5.1); PROTEIN - SERUM 7.6 g/dL (6.4-8.2)
--- NOTE | 2016-10-15 10:18 | NUR ---
0700 AM REPORT RECEIVED FROM RADHA POSADAS RN. PATIENT AWAKE, LYING IN BED. 2L NC. DENIES CHEST PAIN AT THIS TIME. 0800 SITTING UP ON SIDE OF BED EATING BREAKFAST. SON AT BEDSIDE. ALL VITALS WNL. 1000 UP FROM BED, AMBULATED TO BATHROOM. VOIDED 600CC. BACK TO BEDSIDE. CPAP APPLIED TO SLEEP.
[2016-10-15 11:19] LABS: HEMOGLOBIN A1C 7.3 % (4.8-6.0)
--- NOTE | 2016-10-15 11:25 | NUR ---
1115 CONSENTS DISCUSED IN LENGTH WITH PATIENT AT BEDSIDE. ALL CONSENTS SIGNED. KERI WITH RESP AT BEDSIDE FOR PREOP ABG AND EKG
[2016-10-15 11:28] LABS: PHOSPHOROUS 3.9 mg/dL (2.5-4.9); T4 THYROXIN - FREE 0.85 ng/dL (0.76-1.46); THYROID STIMULATING HORMONE 2.97 uIU/mL (0.36-3.74); URIC ACID 6.3 mg/dL (2.6-7.2)
--- NOTE | 2016-10-15 11:46 | NUR ---
FSBS TREATED PER JUL. PATIENT SITTING UP AT BEDSIDE EATING LUNCH. GERMAN GROVES FOR DR. CHARLTON NOTIFIED OF CALCIUM LEVEL FROM ABG. NO ORDERS GIVEN.
[2016-10-15 11:47] LABS: APTT 32.4 SECONDS (22.8-39.4); INR 1.05 (0.85-1.17); PROTIME 13.5 SECONDS (11.6-15.0)
[2016-10-15 12:33] LABS: COLD SCREEN @ 4 DEGREES 2+ (NEGATIVE); COLD SCREEN ROOM TEMP NEGATIVE (NEGATIVE)
--- NOTE | 2016-10-15 14:03 | NUR ---
URINE SPECIMEN COLLECTED. LABELED AT BEDSIDE AND CARRIED TO LAB.
--- NOTE | 2016-10-15 14:33 | NUR ---
DR. AUGUSTE AT BEDSIDE FOR ANESTHESIA CONSULT.
[2016-10-15 15:12] LABS: APPEARANCE CLEAR (CLEAR); BILIRUBIN NEGATIVE (NEGATIVE); COLOR YELLOW (YELLOW); GLUCOSE 1000 mg/dL (NEGATIVE); KETONE NEGATIVE (NEGATIVE); LEUKOCYTE ESTERASE NEGATIVE (NEGATIVE); NITRITE NEGATIVE (NEGATIVE); PROTEIN NEGATIVE (NEGATIVE); SPECIFIC GRAVITY 1.015 (1.005-1.020); UROBILINOGEN NORMAL (NORMAL)
--- NOTE | 2016-10-15 15:43 | NUR ---
1329 DR. SHARMA ON FLOOR TO SEE PATIENT. DISCUSSED NEED TO ADJUST INSULIN FROM LOW SLIDING SCALE TO INTERMEDIATE SCALE. V/O GIVEN TO ADJUST. CHANGED TO INTERMEDIATE SCALE.
--- NOTE | 2016-10-15 16:06 | NUR ---
FSBS 188 TREATED PER SLIDING SCALE
--- NOTE | 2016-10-15 19:00 | NUR ---
1900: Pt resting HOB 30 degrees with eyes open. Pt LOCx3 alert and oriented. Pt follows all commands and is able to move extrem x4 vs gravity. Pt denies pain, tingling, numbness, nausea, or vomitting at this time. Breathing RA RR20x with SPO2 98% Lungs clear bilat. S1S2 regular SR on CM. ABD soft NT BSx4 active. Pt denies difficulty with elimination. SR upx2, call light in reach, bed in lowest position, All monitors on with alarms intact.
--- NOTE | 2016-10-15 21:00 | NUR ---
2100: Family here at bedside. Pt without c/o at this time. Pt remains SR on CM. Pt requested Ambien for sleep. Pt has home CPAP at bedside and demostrates use.
--- NOTE | 2016-10-15 23:00 | NUR ---
2300: Pt resting with eyes closed at this time. No change in RESP/CV/NV status. Pt remains on home CPAP.
[2016-10-16] VITALS (43 sets, daily range): BP systolic 106–151; BP diastolic 4–76
--- NOTE | 2016-10-16 01:00 | NUR ---
0100: Pt resting with eyes closed at this time. Pt remains on home CPAP with RR 12-16x with SPO2 98%. SR on CM 65-70bpm.
--- NOTE | 2016-10-16 04:00 | NUR ---
0400: Pt prepped and clipped as per orders. Hibiclens bath done and linen changed.
--- NOTE | 2016-10-16 06:00 | NUR ---
0600: Preop as per orders. Rx admin with small sips of water only. Elbow pads applied bilaterally. NS started to left FA PIV at TKVO. Family at bedside. Updates provided.
--- NOTE | 2016-10-16 07:00 | NUR ---
0700: OR team here at bedside. Report given and pt transported to OR.
[2016-10-16 08:07] LABS: PLT FUNCT.(P2Y12) PLAVIX 211 PRU (194-418)
[2016-10-16 14:27] LABS: HEMATOCRIT 36.4 % (42.0-54.0); HEMOGLOBIN 12.1 g/dL (13.5-17.5); MCH 31.7 pg (26.0-34.0); MCHC 33.2 g/dL (31.0-37.0); MCV 95.3 fL (80.0-100.0); MEAN PLATELET VOLUME 9.8 fL (7.4-10.4); RBC 3.82 10x6/uL (4.20-6.10); RDW 14.4 % (11.5-14.5); WBC 19.5 10x3/uL (4.8-10.8)
[2016-10-16 14:35] LABS: ANION GAP 15.5 mmol/L (8-16); APTT 33.5 SECONDS (22.8-39.4); CARBON DIOXIDE 24.2 mmol/L (21.0-32.0); CREATININE - SERUM 1.3 mg/dL (0.6-1.3); INR 1.24 (0.85-1.17); POTASSIUM - SERUM 3.7 mmol/L (3.5-5.1); PROTIME 15.5 SECONDS (11.6-15.0)
[2016-10-16 14:36] LABS: CALCIUM 7.9 mg/dL (8.5-10.1)
--- NOTE | 2016-10-16 14:43 | NUR ---
10/16/2016 14:41 DCP: Discharge Planning Patient in OR for CABG - No family present to complete DC planning assessment.
--- NOTE | 2016-10-16 18:25 | NUR ---
1510-RECIEVED FROM OR ACCOMPANIED BY OPEN HEART TEAM-PLACE TO VENTILATOR-BY RT -SEE RT RECORD FOR VENT CHANGES-NOTED SR-PACED DDD-WITH BIJEMINAL PAC-R RADIAL BLANCHE WITH GOOD WAVE FORM--R JUGULAR TO SWAN ARTIE--OGT TUBE-CHECKED FOR PLACEMENT WITH AIR BOLUS- 1520-PORT CXR- 1540-DR CHARLTON AT [facility]-SWAN ARTIE ADJUSTED TO 60CM- AND LOCKED-CORDARONE 150MG BOLUS STARTED OVER 10MIN--PLASMALYTE 200ML- 1600 -CACL-1 GR AND ALBUMIN INFUSION STARTED ORDERED 1615-PT AWAKE AND NODS TO QUESTIONS CORRECTLY 1750-DR CHARLTON IN UNIT-NOTED CONT SR WITH PAC Q3RD PACED A/V-CORDARONE 150MG BOLUS 181-FAMILY AT [facility]-QUESTIONS ANSWERED
--- NOTE | 2016-10-16 19:10 | NUR ---
SHIFT ASSESSMENT COMPLETED. SEE ASSESSMENT FLOWSHEET FOR DETAILS. ON CPAP MODE ON VENT. AWAKENS AND FOLLOWS COMMANDS. TPM DDD-80; 10; 10. A-SENSING, V-PACING. SCD'S AND MERA HOSE TO LEFT LEG ONLY AT THIS TIME. RT LEG WITH COBAND DRSG INTACT. DIMINISHED LUNG SOUNDS TO THE BASES AND RML NOTED. KAREN DOING NIF AND VITAL CAPACITY AT THIS TIME IN PREPARATION FOR EXTUBATION.
--- NOTE | 2016-10-16 19:15 | NUR ---
EXTUBATED TO 4LPM/NC VIA KAREN WITH R.T. OGT ALSO REMOVED. INFORMED NOT TO TALK RIGHT AWAY AFTER TUBE BEING REMOVED.
--- NOTE | 2016-10-16 19:21 | NUR ---
184-REPORT GIVEN TO DR CHARLTON NO FURTHER ORDERS AT THIS TIME
--- NOTE | 2016-10-16 21:45 | NUR ---
SPOKE WITH DR. CHARLTON VIA PHONE ABOUT HEART RHYTHM. CHANGED TEMPORARY PACEMAKER TO DDD-60. ATRIALLY SENSING AND V-PACING WITH AN OCCASSIONAL PACED VENTRICULAR BEAT. WILL MONITOR HR AND B/P FOR PACING/B/P DECLINE. 1:1 NURSING CARE IN PROCESS.
--- NOTE | 2016-10-16 22:36 | NUR ---
BREATHING TREATMENT, I.S. UP TO 1100ML AND DEEP BREATHING AND COUGHING EXERCISES DONE. HEART RHYTHM NOW CONSISTENLY REGULAR: A-SENSING, V-PACING @ 92 BPM.
--- NOTE | 2016-10-16 23:05 | NUR ---
REASSESSMENT COMPLETED. SEE ASSESSMENT FLOWSHEET. ON HOME CPAP MASK VIA NARES WITH 4L/MIN O2 BLEEDING IN. WILL CONTINUE TO MONITOR.
[2016-10-17] VITALS (96 sets, daily range): BP systolic 122–198; BP diastolic 45–73
--- NOTE | 2016-10-17 00:45 | NUR ---
ABG'S DRAWN FROM RT RADIAL A-LINE PER KAREN WITH R.T. POTASSIUM RIDER STARTED VIA BURETROL. REPOSITIONED SELF SOME IN BED. DENIES TO BE TURNED ON SIDE. WILL MONITOR.
--- NOTE | 2016-10-17 02:15 | NUR ---
BREATHING TREATMENT IN PROGRESS. AWAKE, CONVERSATION ABOUT MEDICAL MARIJUANA. WILL MONITOR.
--- NOTE | 2016-10-17 02:20 | NUR ---
PULLED 1,000 ML TO 1100ML ON I.S. X 1O TIMES.
--- NOTE | 2016-10-17 03:22 | NUR ---
REASSESSMENT COMPLETED. SEE ASSESSMENT FLOWSHEET FOR DETAILS. NO ACUTE DISTRESS NOTED. MOVED UE'S MORE ELEVATED AND AWAY FROM HIS CORE TO COOL OFF. WILL MONITOR.
--- NOTE | 2016-10-17 04:50 | NUR ---
RT LEG COBAND DRSG REMOVED AND NEW DRSG PLACED PER ORDERED PROTOCOL. 5 TRANSVERSE STAPLED INCISIONS FROM RT THIGH TO MID LEG ALL WNL. CHLORHEXIDEN WIPES USED ON ANTERIOR ASPECT OF BODY AND STOREY CATHETER CARE COMPLETED USING BARD KIT. 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 WILL MONITOR. 1:1 NURSING CARE IN PROGRESS.
--- NOTE | 2016-10-17 05:05 | NUR ---
KAREN WITH R.T. AT BEDSIDE TO DRAW SCHEDULED ABG. AM BLOOD SPECIMEN OBTAINED ALSO. WILL MONITOR.
[2016-10-17 05:26] LABS: HEMOGLOBIN 10.8 g/dL (13.5-17.5); MCH 31.2 pg (26.0-34.0); MCHC 32.7 g/dL (31.0-37.0); MCV 95.4 fL (80.0-100.0); RBC 3.46 10x6/uL (4.20-6.10); RDW 14.7 % (11.5-14.5)
[2016-10-17 05:28] LABS: WBC 13.1 10x3/uL (4.8-10.8)
[2016-10-17 05:43] LABS: ALBUMIN 3.6 g/dL (3.4-5.0); BILIRUBIN - TOTAL 1.08 mg/dL (0.2-1.3); CALCIUM 8.2 mg/dL (8.5-10.1); CARBON DIOXIDE 24.1 mmol/L (21.0-32.0); CREATININE - SERUM 1.5 mg/dL (0.6-1.3); POTASSIUM - SERUM 4.1 mmol/L (3.5-5.1); PROTEIN - SERUM 6.2 g/dL (6.4-8.2)
--- NOTE | 2016-10-17 06:20 | NUR ---
DECREASED DOPAMINE GTT TO 2.8MCG/KG/MIN. SBP 135; CARDIAC OUTPUT: 5.9. WHEN ASKED, STATES THAT HE THINKS HIS WILL BE HERE AT 0600. WILL CHECK WAITING ROOM WHEN EMERGENCY DOWN THE [place] RESOLVED. SMALL SIP OF WATER GIVEN PER REQUEST. FSBS ASSESSED. WILL RECHECK IN ONE HOUR. WILL MONITOR.
--- NOTE | 2016-10-17 08:08 | NUR ---
0715-RECIEVED PER FLOW SHEET-AWAKE AND ALERT-HOME BIPAP IN PLACE-MORPHINE FABRICATION MACHINE OPERATOR IN REACH-AND PT STATED AWARE OF HOW TO USE-MEDIASTINAL CHEST TUBES A AND P-NO AIRLEAK NOTED AT THIS TIME-SCANT SEROUS TYPE DRAINAGE SZCMH-MARYEOWL-FMYFG TUBE-NO AIRLEAK AND SCANT SEROUS/SANG DRAINAGE NOTED-R RADIAL BLANCHE-ABLE TO MOVE ALL DIGITS-STATED FEELS MORE SWOLLEN-THAN L HAND-WARM TO TOUCH R JUGULAR CORDIS-SWAN ARTIE-GOOD WAVE FORM NOTED -MONITOR-SINUS BASED-ATRIAL SENSED FOLLOWED BY VENT PACED -NOTED PAC EVERY 4-5TH BEAT-60 02/16- 744-12 LEAD EKG DONE-PACED VENTRICLE 0800-INCENTIVE DONE BY PT -JOHN
--- NOTE | 2016-10-17 08:27 | NUR ---
HR 93-ATRIAL SENSED VENT PACED-NO PAC-RESP RX IN PROGRESS
--- NOTE | 2016-10-17 08:40 | NUR ---
RESP RX COMPLETED-HOME BIPAP WITH 4L BINDERY CUTTER OPERATOR-75 HR AT SENSED VENT PACED
[2016-10-17 09:01] LABS: MAGNESIUM - SERUM 2.6 mg/dL (1.8-2.4); POTASSIUM - SERUM 3.8 mmol/L (3.5-5.1)
--- NOTE | 2016-10-17 09:14 | NUR ---
[id number] AND PVC-SERUM MAG AND K-DRAWN- 0855-K 3.6-KCL RIDER STARTED [id number]
--- NOTE | 2016-10-17 09:15 | NUR ---
FAMILY AT [facility]--[facility]
--- NOTE | 2016-10-17 13:32 | OP ---
PATIENT NAME: GIANNA GREER MEDICAL RECORD: [id number] :49 LOCATION:[facility] D.CV05 ADMISSION DATE:10/14/16 SURGEON: HECTOR CHENEY MD DATE OF OPERATION: 10/16/2016 SURGEON: Hector Cheney MD. ANESTHESIA: General endotracheal, Dr. Hinton. OPERATIONS PERFORMED: Aortocoronary artery bypass utilizing left internal thoracic to the left anterior descending and reverse saphenous vein segment, sequential first obtuse marginal and sequential second obtuse marginal. PREOPERATIVE DIAGNOSES: Intermediate coronary syndrome, unstable angina. POSTOPERATIVE DIAGNOSES: Intermediate coronary syndrome, unstable angina. INDICATION FOR OPERATION: Unstable angina. FINDINGS OF THE OPERATION: The left internal thoracic and right greater saphenous vein were good for grafting. The target vessels were also of good caliber and quality. ESTIMATED BLOOD LOSS: Cell Saver was used. DESCRIPTION OF PROCEDURE: After informed consent and adequate preoperative medication evaluation, the patient was brought to the operating room, placed on the table in the supine position. After induction of general endotracheal anesthesia and application of appropriate monitoring devices, transesophageal echo, the patient was prepped and draped in a sterile field, utilizing Betadine scrub, alcohol, and Betadine solution. A Betadine-impregnated drape was also used. Saphenous vein was harvested from the right leg through small transverse incisions. The leg was closed over drains utilizing 3-0 Vicryl and skin bridgett. A median sternotomy incision was made and dissection carried down the fascia. Hemostasis maintained with electrocautery. Sternum was divided. Innominate vein was identified and protected. Left internal thoracic was taken down and prepared for grafting. The patient was given a calculated dose of heparin, cannulated in a standard fashion utilizing 1 aortic, 1 two-stage cannula in the atrium and inferior vena cava. The patient was placed on cardiopulmonary bypass, cooled to 32 degrees centigrade. A cross clamp was placed just proximal to the aortic cannula and the patient was given cardioplegic solution through the aortic root. The patient was given a warm induction and cold maintenance. The patient was given cold intermittent cardioplegic solution throughout the procedure, either through the grafts, root or a combination of both. The first vessel to be grafted was the second obtuse marginal. It was grafted end-to-side utilizing a running 7-0 Prolene suture. The graft was then measured to the first diagonal in a mnxq-dl-xhdw anastomosis fashion utilizing running 7-0 Prolene suture. The grafts were measured back to the aorta and a proximal anastomosis fashioned utilizing running 6-0 Prolene suture. Next, the left internal thoracic was brought through the hole in pericardium, sutured left anterior descending end-to-side utilizing a running 8-0 Prolene suture. Pedicle was attached to epicardium with 7-0 Prolene suture. The patient was given a warm cardioplegic reperfusion and controlled reperfusion. The patient rewarmed to 37 degrees centigrade. Two atrial and 2 ventricular pacing wires were placed on the heart and brought out through the OPERATIVE REPORT [id number] GIANNA GREER S epigastric area. The patient was weaned cardiopulmonary bypass. After being stable off bypass, he was given calculated dose of protamine to reverse the heparin. Hemostasis was achieved. A #40 right angle and #36 chest tubes were brought in through the epigastric area and placed in the mediastinum. The chest was again irrigated. Instrument count and sponge count were correct times 2. A separate left pleural tube was connected to underwater seal and suction. Chest was again irrigated. Instrument count and sponge counts were correct times 2. Chest was closed in layers utilizing #7 wire on the sternum, #2 Vicryl in linea alba and pectoralis fascia. Subcutaneous tissue was approximated with 3-0 Vicryl and skin approximated with 3-0 subcuticular Vicryl. Sterile dressings were applied. The patient tolerated the procedure well and transferred to cardiovascular recovery in stable condition. TRANSINT:[id number] Voice Confirmation ID: [id number] DOCUMENT ID: [id number] HECTOR CHENEY MD at 1332 CC: [id number] DICTATION DATE: 10/16/16 1446 DYE ROOM HELPER: 10/17/16 0021 ADM IN [facility] [address] [id number]
--- NOTE | 2016-10-17 18:42 | NUR ---
ORAL CARE PERFORMED WITH PERIDEX ORDERED
--- NOTE | 2016-10-17 19:15 | NUR ---
SHIFT ASSESSMENT COMPLETED. SEE ASSESSMENT FLOWSHEET. WEARING HOME CPAP MASK WITH 4 L/MIN OF O2 BLEEDING IN. FACE FLUSHED, TEMP NOT VERY ELEVATED. GENERALIZED WEAKNESS AND SWELLING NOTED TO ALL 4 EXTREMITIES. C/O PAIN TO RT THUMB. A-LINE SECURED AND NOT TOO TIGHTLY. ROM GOOD IN ALL EXTREMITIES. CAP REFILL < 3 SECONDS. LEFT SC WITH BURETROL WITH KCL RIDER INFUSING VIA BURETROL WITH MORPHINE REAGENT TENDER @ 1MG Q 10 MIN PRN; OTHER LUMEN WITH CLEVIPREX @ 10MG/HR. RT IJ SWAN INTACT AND LOCKED. PLASMALYTE @ 30ML/HR TOTAL AND INSULIN @ 9 UNIITS/HR; CORDARONE @ 0.5MG/MIN. WILL MONITOR. 1:1 NURSING CARE IN PROGRESS.
--- NOTE | 2016-10-17 21:10 | NUR ---
DR. CHARLTON CALLED AND INFORMED OF ABG RESULTS, PULSE OX DECREASED TO 85%; HEART RHYTHM CHANGES. NEW ORDERS RECEIVED. TPM CHANGED TO DDD-90; 10; 10. AV PACED NOW AT 90-91. ORDERS TO KEEP SBP <160MMHG AND TO WEAN OFF CLEVIPREX. WILL MONITOR.
--- NOTE | 2016-10-17 21:19 | NUR ---
ORDER RECEIVED TO D/C CORDARONE GTT AFTER THIS BAG COMPLETED FROM DR. CHARLTON.
--- NOTE | 2016-10-17 21:25 | NUR ---
IV LASIX GIVEN ORDERED SLOW IVP. PO TOPROL XL EXTRA DOSE GIVEN PER DR. CHARLTON'S ORDERS. FAMILY AT BEDSIDE. UPDATE GIVEN. SPOKE WITH ANOTHER SON, MADY OF TELEPHONE AND UPDATE GIVEN. QUESTIONS ANSWERED. O2 SATS IMPROVING AND HR STABLE AV PACED AT 90 AT THIS TIME. WILL MONITOR.
--- NOTE | 2016-10-17 22:56 | NUR ---
CLEVIPREX GTT TURNED OFF. BLOOD SPECIMEN DRAW VIA A-LINE TO TEST K+ LEVEL AND FSBS-126. TURNED DOWN INSULIN GTT TO 7 UNITS/HR. WILL MONITOR.
--- NOTE | 2016-10-17 23:10 | NUR ---
OXYGEN WEANES DOWN TO 7L/MIN VIA HOME CPAP MASK. O2 SATS WITH CLEVIPREX OFF=96%.
--- NOTE | 2016-10-17 23:50 | NUR ---
SON CAME IN AT BEDSIDE TO GIVE NURSING DRINKS. CHECKED ON STATUS AND UPDATE GIVEN. SPOKE W/ HIS SON BRIEFLY. REASSESSMENT COMPLETED. SEE ASSESSMENT FLOWSHEET. WILL MONITOR.
[2016-10-18] VITALS (46 sets, daily range): BP systolic 115–151; BP diastolic 52–71
--- NOTE | 2016-10-18 00:45 | NUR ---
FSBS ASSESSED. TURNED INSULIN GTT BACK ON AT 4 UNITS/HR. WILL MONITOR.
--- NOTE | 2016-10-18 01:30 | NUR ---
GLASS GRINDER BUTTON PRESSED AFTER I WOKE HIM UP. DENIES TO BE TURNED OR CHANGED POSITIONED AT THIST TIME. WILL MONITOR.
--- NOTE | 2016-10-18 03:00 | NUR ---
BREATHING TREATMENT, I.S. AND COUGHING AND DEEP BREATHING COMPLETED. PULLED 750ML AND ONCE-1,000ML ON I.S. REPORTED "ANXIOUS" AFTERWARDS FEELING LIKE HE HAS SOMETHING STUCK IN HIS THROAT. COUGHING EXERCISES DONE, NON-PRODUCTIVE COUGH. ENCOURAGED PO FLUID. PO ATIVAN (HOME MED) GIVEN ONCE TELLING HIM IT WAS NOW AVAILABLE IF NEEDED. REQUESTED MED. MED GIVEN. SITTING UP AT 45 DEGREES AT THIS TIME AND TOLERATING WELL. REASSESSMENT COMPLETED. SEE ASSESSMENT FLOWSHEET FOR DETAILS. WILL MONITOR. 1:1 NURSING CARE IN PROGRESS.
--- NOTE | 2016-10-18 04:45 | NUR ---
UPPER ABDOMINAL/CT/TPM WIRE INSERT SITE DRSG CHANGED VIA STERILE TECHNIQUE PER PROTOCOL. RT LEG DRSG ALSO COMPLETED. TOLERATED WELL. WILL MONITOR.
--- NOTE | 2016-10-18 05:55 | NUR ---
AM LAB SPECIMEN OBTAINED FROM RT RADIAL A-LINE. USED BLOOD SPECIMEN TO CHECK SUGAR-146. WILL LEAVE INSULIN AT CURRENT RATE. DENIES NEED FOR PRN MORPHINE AT THIS TIME. WILL MONITOR. 1:1 NURSING CARE IN PROGRESS.
[2016-10-18 06:09] LABS: HEMATOCRIT 30.9 % (42.0-54.0); HEMOGLOBIN 9.8 g/dL (13.5-17.5); MCH 30.6 pg (26.0-34.0); MCHC 31.7 g/dL (31.0-37.0); MCV 96.6 fL (80.0-100.0); MEAN PLATELET VOLUME 9.7 fL (7.4-10.4); RBC 3.2 10x6/uL (4.20-6.10); RDW 15.3 % (11.5-14.5); WBC 13.6 10x3/uL (4.8-10.8)
[2016-10-18 06:19] LABS: ALBUMIN 3.2 g/dL (3.4-5.0); ANION GAP 12.2 mmol/L (8-16); BILIRUBIN - TOTAL 0.92 mg/dL (0.2-1.3); CALCIUM 7.7 mg/dL (8.5-10.1); CARBON DIOXIDE 24.9 mmol/L (21.0-32.0); CREATININE - SERUM 1.5 mg/dL (0.6-1.3); POTASSIUM - SERUM 4.1 mmol/L (3.5-5.1); PROTEIN - SERUM 6.3 g/dL (6.4-8.2)
--- NOTE | 2016-10-18 07:00 | NUR ---
BEDSIDE REPORT GIVEN TO KANU PORTER.
--- NOTE | 2016-10-18 08:31 | NUR ---
0715-RECIEVED PER FLOW SHEET-HOB ELEVATED 30-BIPAP IN PLACE-REPOSITIONED IN BED-INCENTIVE SPIROMETRY ATTEMPTED WITH POOR EFFORT-NOTED PACED 100% 90/10/10 CHEST TUBES X3- NO AIRLEAK-SCANT DRAINAGE-STATES R HAND WITH BLANCHE-NO DISCOMFORT-
--- NOTE | 2016-10-18 09:19 | NUR ---
0920-SON AT BEDSIDE-STATUS REPORT GIVEN
[2016-10-18] MEDS ORDERED: TRESIBA FL100 UNIT/1 (12:26)
[2016-10-18] MEDS ORDERED: ISOSORBIDE MONO30 M1 PO (15:17)
--- NOTE | 2016-10-18 15:46 | NUR ---
1300-DR CHARLTON AT [facility]-VERSED 5MG IVP-GIVEN BY SAME PREMED FOR MEDIASTINAL CHEST TUBE REMOVAL-SAME DONE PER PROTOCOL-MAMADOU ALVA D/C'D PER PROTOCOL--R LEG JPRATT X2 D/C'D-SUTURE X1 PER EACH REMOVED-PT ALERT-AND TALKING REACHING FOR AREAS-PACED 91-ABP-127/57 1310-NIBP PLACED-R BLANCHE D/C'D PER PROTOCOL-118/60-91-95%-HEMOSTASIS OBTAINED 1320-R CORDIS IJ D/C'D PER PROTOL-3 SUTURES-NIBP 113/57-91-RR 19-93% 1330-DRG CHANGES COMPLETED-PT CONVERSING EASILY AND ABLE TO FOLLOW ALL DIRECTIONS- 1345-RALEIGH IRVING D/C'D PER PROTOCOL 1415-ASSISTED TO [facility] CHAIR WITH PHYSICAL THERAPY-POOR DIRECTION FOLLOWER 1430-BROUGHT TO STAY WITH PT WHILE UP IN CHAIR
--- NOTE | 2016-10-18 17:20 | NUR ---
AMBULTED TO REST ROOM WITH MINIMAL ASSISTANCE-STATES NOT ABLE TO URINATE YET
--- NOTE | 2016-10-18 19:15 | NUR ---
REPORT RECVD. CARE ASSUMED. INITIAL ASSMNT COMPLETED. SEE FLOWSHEET FOR ALL FINDINGS. AWAKE, RESTING ON HOME CPAP WITH O2 AT 4PM. AOX4. PERRLA. MAEW. NO DEFICITS. RESP EVEN AND UNLABORED. LUNGS CTA. DIM IN BASES. SPO2 96%. AV PACED ON THE MONITOR AT 90. TEMP PM INTACT AT DDD 90. PULSES PALP. TEDS/SCDS IN USE. AFEBRILE. STERNAL AND RIGHT LEG DRESSINGS CDI. ABD ROUND AND OBESE. BSA X4. REPORTS PASSING FLATUS. BLADDER NON PALP. NO URGE TO VOID AT THIS TIME. PAIN IN CONTROL WITH TEST ARCHITECT MORPHINE. HOB UP. C/L IN REACH. BED ALARM ON FOR SAFETY. CONT CURRENT POC.
--- NOTE | 2016-10-18 20:15 | NUR ---
ASSISTED UP TO BATHROOM TO VOID NO DIFF. BACK TO BED POSITIONED FOR COMFORT. VSS. RETURNED TO HOME CPAP. C/L AND ORTHOTICS ASSISTANT IN REACH.
--- NOTE | 2016-10-18 21:15 | NUR ---
HS MEDS GIVEN. FAMILY AT BEDSIDE. UPDATE GIVEN. NO DISTRESS. NO NEEDS VOICED. CONT CURRENT POC.
--- NOTE | 2016-10-18 23:15 | NUR ---
REASSESSMENT COMPLETED. SEE FLOWSHEET FOR ALL FINDINGS. RESTING ON HOME CPAP WITH O2 AT 4PM. AOX4. PERRLA. MAEW. NO DEFICITS. RESP EVEN AND UNLABORED. LUNGS CTA. DIM IN BASES. SPO2 96%. AV PACED ON THE MONITOR AT 90. TEMP PM INTACT AT DDD 90. PULSES PALP. TEDS/SCDS IN USE. AFEBRILE. STERNAL AND RIGHT LEG DRESSINGS CDI. ABD ROUND AND OBESE. BSA X4. REPORTS PASSING FLATUS. BLADDER NON PALP. NO URGE TO VOID AT THIS TIME. PAIN IN CONTROL WITH UNIT TECHNICIAN MORPHINE. HOB UP. C/L IN REACH. BED ALARM ON FOR SAFETY. CONT CURRENT POC.
[2016-10-19] VITALS (23 sets, daily range): BP systolic 100–156; BP diastolic 40–87
--- NOTE | 2016-10-19 00:45 | NUR ---
K+ LEVEL REQUIRES NO TX. SQ INSULIN GIVEN. ASSISTED UP TO BR TO VOID. POSITIONED BACK IN BED FOR COMFORT. VSS. CONT CURRENT POC.
--- NOTE | 2016-10-19 01:20 | NUR ---
UP TO BR TO VOID NO DIFF. VSS. REPOSITIONED IN BED FOR COMFORT. HOB UP. C/L AND WICK TENDER IN REACH. CONT POC.
--- NOTE | 2016-10-19 03:30 | NUR ---
REASSESSMENT COMPLETED. SEE FLOWSHEET FOR ALL FINDINGS. RESTING ON HOME CPAP WITH O2 AT 4PM. AOX4. PERRLA. MAEW. NO DEFICITS. RESP EVEN AND UNLABORED. LUNGS CTA. DIM IN BASES. SPO2 96%. AV PACED ON THE MONITOR AT 90. TEMP PM INTACT AT DDD 90. PULSES PALP. TEDS/SCDS IN USE. AFEBRILE. STERNAL AND RIGHT LEG DRESSINGS CDI. ABD ROUND AND OBESE. BSA X4. REPORTS PASSING FLATUS. BLADDER NON PALP. NO URGE TO VOID AT THIS TIME. PAIN IN CONTROL WITH HEALTHCARE APPLICATIONS ANALYST MORPHINE. HOB UP. C/L IN REACH. BED ALARM ON FOR SAFETY. CONT CURRENT POC.
--- NOTE | 2016-10-19 05:00 | NUR ---
UP IN CHAIR AT BEDSIDE. VSS. AV PACED. DENIES NEEDS. C/L AND OCA IN REACH. CONT POC.
[2016-10-19 06:32] LABS: HEMOGLOBIN 9.8 g/dL (13.5-17.5); MCH 30.7 pg (26.0-34.0); MCHC 31.6 g/dL (31.0-37.0); MCV 97.2 fL (80.0-100.0); MEAN PLATELET VOLUME 9.7 fL (7.4-10.4); RBC 3.19 10x6/uL (4.20-6.10); RDW 15.1 % (11.5-14.5); WBC 12.4 10x3/uL (4.8-10.8)
[2016-10-19 07:02] LABS: ANION GAP 14.6 mmol/L (8-16); BILIRUBIN - TOTAL 0.97 mg/dL (0.2-1.3); CARBON DIOXIDE 24.3 mmol/L (21.0-32.0); CREATININE - SERUM 1.7 mg/dL (0.6-1.3); POTASSIUM - SERUM 3.9 mmol/L (3.5-5.1); PROTEIN - SERUM 6.6 g/dL (6.4-8.2)
--- NOTE | 2016-10-19 07:55 | NUR ---
DR CHARLTON IN TO SEE PATIENT. PACEMAKER SETTINGS CHANGED TO VVI 50, 0, 10.
--- NOTE | 2016-10-19 09:07 | NUR ---
Nutrition follow-up: Diet now clear liquids s/p CABG labs reviewed Wt: 277# RDN will continue to monitor pts diet advancement and tolerance.
--- NOTE | 2016-10-19 09:15 | NUR ---
MORPHINE GELATIN DYNAMITE PACKING OPERATOR DISCONTINUED.
--- NOTE | 2016-10-19 09:34 | NUR ---
PT ASSISTED FROM CHAIR TO TOILET, AND THEN TO THE BED.
--- NOTE | 2016-10-19 12:14 | NUR ---
PT ASSISTED UP TO TOILET. NOW IN CHAIR AT BEDSIDE FOR LUNCH. FSBS 244. 8 UNITS HUMALOG GIVEN.
--- NOTE | 2016-10-19 12:14 | NUR ---
* Is the patient Alert and Oriented? Yes 0 * How many steps to enter\exit or inside your home? 3 0 * PCP Dr. Swan 0 * Pharmacy [facility] [address] 0 * Preadmission Environment Home with Family 0 * ADLs Independent 0 * Equipment Cane CPAP 0 * List name and contact numbers for known caregivers / representatives who currently or will assist patient after discharge: Spouse - Mery [phone] 0 * Additional services required to return to the preadmission environment? No 0 * Can the patient safely return to the preadmission environment? Yes 0 * Has this patient been hospitalized within the prior 30 days at any hospital? No 10/19/2016 12:14 DCP: Discharge Planning Patient Name: GIANNA GREER Admission Status: ER Accout number: [id number] Admission Date: 10-14-2016 : 1945 Admission Diagnosis:CHEST PAIN, UNSPECIFIED Attending: GIRMA Current LOS: 5 Anticipated DC Date: 10-21-2016 Planned Disposition: Home Primary Insurance: MEDICARE A & B Discharge Planning Comments: CM met with patient to assess dc plans/needs. Patient states he lives with , Mery. He reports he is independent with all ADL's & IADL's, but does use a walking stick for stability with ambulating. He also has a home CPAP machine. At dc, he will return home with his . He reports he has good family support & they will assist with any needs. CM will follow & assist with DC needs. Automatic Fabric Cutter: Latanya Duran
--- NOTE | 2016-10-19 13:11 | NUR ---
PT ASSISTED UP FROM CHAIR TO TOILET. MINIMAL ASSIST. DRESSINGS TO RIGHT LEG REMOVED AND CHANGED PER ORDER. MERA HOSE PLACED ON RIGHT LEG.
--- NOTE | 2016-10-19 13:30 | NUR ---
PT UP WALKING WITH PHYSICAL THERAPY
--- NOTE | 2016-10-19 15:00 | NUR ---
PT ASSISTED FROM CHAIR TO TOILET. MINIMAL ASSIST.
--- NOTE | 2016-10-19 16:11 | NUR ---
PT ASSISTED UP TO TOILET. MINIMAL ASSIST. CORDARONE BOLUS GIVEN. LEFT SUBCLAVIAN FLUSHED AND CAPPED UPON COMPLETION.
--- NOTE | 2016-10-19 18:40 | NUR ---
PT SITTING UP IN CHAIR AT BEDSIDE. FAMILY WAS IN FOR 6PM VISITATION. ASKED IF HE COULD WALK TO WAITING ROOM DOOR TO SEE GRANDDAUGHTER. PT WALKED FROM ROOM TO WAITING ROOM DOOR WITH STANDBY ASSIST. PAUSED ONCE FOR A FEW SECONDS ON RETURN TRIP TO ROOM. SAT READING OF 97% ON ROOM AIR.
--- NOTE | 2016-10-19 19:10 | NUR ---
ASSISTED UP TO BEDSIDE COMMODE. 2O0 CC JOHNNY URINE NOTED. PT SHOWN TO HAVE MULTIPLE PVC'S LAST K+ DRAW WITH AM LAB AND WAS TREATED. WILL RECHECK LAB AND TREAT ACCORDINGLY.
--- NOTE | 2016-10-19 19:48 | NUR ---
ASSESSMENT COMPLETE PER FLOW SHEET. PT AWAKE ALERT OREINTED X3 DENIES PAIN OR NEEDS. O2 VIA HOME BIPAP UNIT 4L O2 SAT 98% RR 16 NON LABORED REGULAR BILAT ALL LOBES CLEAR. HEART S1S2 HR 78 NSR WITH OCC. PVC'S. AWAITING K+ RESULTS. TPM PATENT DRSG CDI VVI 50 VMA 10 SESITIVITY 2. BS ACTIVE X4. BILAT RADIAL AND PEDAL PULSES PALP +2. MIDSTERNAL DRSG CDI. R LEG DRSG CDI. BILAT TEDS SCD'S ON. DENIES NEEDS. WILL CONTINUE TO MONTIOR.
--- NOTE | 2016-10-19 20:10 | NUR ---
K+ READ BACK 3.7 GIVEN 5MEQ PER PROTOCOL. WILL REDRAW AT 2300
--- NOTE | 2016-10-19 20:40 | NUR ---
UP OOB TO BEDSIDE COMMODE 200 CC JOHNNY URINE NOTED.
--- NOTE | 2016-10-19 21:16 | NUR ---
FAMILY AT BEDSIDE. GIVEN UDPATE. VSS. NO NEW CHANGES
--- NOTE | 2016-10-19 22:16 | NUR ---
UP OOB TO BEDSIDE COMMODE. 500 CC JOHNNY URINE NOTED.
--- NOTE | 2016-10-19 23:21 | NUR ---
REASSESSMENT COMPLETE PER FLOW SHEET. VSS. NO NEW CHANGES. WILL CONTINUE TO MONITOR.
--- NOTE | 2016-10-19 23:30 | NUR ---
POTASSIUM REDRAW. AWAITING RESULTS.
--- NOTE | 2016-10-19 23:40 | NUR ---
K+ READ BACK 3.7 WILL GIVE 5MEQ PER PROTOCOL AND REDRAW AT 0300.
--- NOTE | 2016-10-19 23:51 | NUR ---
POTASSIUM READ 3.7 WILL FOLLOW ELECTROLYTE PROTOCOL PER LATESHA.
[2016-10-20] VITALS (21 sets, daily range): BP systolic 110–153; BP diastolic 45–92
--- NOTE | 2016-10-20 00:58 | NUR ---
k+ FINISHED INFUSING. WILL RECHECK k+ AT 0300.
--- NOTE | 2016-10-20 01:38 | NUR ---
PT SLEEPING COMFORTABLY. VSS. WILL CONTINUE TOMONITOR.
--- NOTE | 2016-10-20 03:18 | NUR ---
REASSESSMENT COMPELT EPER FLOW SHEET. VSS. NO NEW CHANGES. WILL CONTINUE TO MONITOR.
--- NOTE | 2016-10-20 04:20 | NUR ---
RADIOLOGY AT BEDSIDE FOR PA/LAT
--- NOTE | 2016-10-20 05:20 | NUR ---
RESP AT BEDSIDE.
[2016-10-20 06:15] LABS: HEMATOCRIT 28.5 % (42.0-54.0); HEMOGLOBIN 9.2 g/dL (13.5-17.5); MCH 31.1 pg (26.0-34.0); MCHC 32.3 g/dL (31.0-37.0); MCV 96.3 fL (80.0-100.0); MEAN PLATELET VOLUME 9.6 fL (7.4-10.4); RBC 2.96 10x6/uL (4.20-6.10); RDW 15.1 % (11.5-14.5); WBC 9.8 10x3/uL (4.8-10.8)
--- NOTE | 2016-10-20 06:20 | NUR ---
FAMILY AT BEDSIDE. GIVEN UPDATE.
[2016-10-20 06:29] LABS: ALBUMIN 2.8 g/dL (3.4-5.0); ANION GAP 14.5 mmol/L (8-16); BILIRUBIN - TOTAL 0.81 mg/dL (0.2-1.3); CALCIUM 8.1 mg/dL (8.5-10.1); CARBON DIOXIDE 26.3 mmol/L (21.0-32.0); CREATININE - SERUM 1.6 mg/dL (0.6-1.3); POTASSIUM - SERUM 3.8 mmol/L (3.5-5.1); PROTEIN - SERUM 6.4 g/dL (6.4-8.2)
--- NOTE | 2016-10-20 07:47 | NUR ---
DR CHARLTON BY TO SEE PATIENT. PT ASKED ABOUT WHEN HE MIGHT BE GOING HOME. POSSIBLY TOMORROW ACCORDING TO DR CHARLTON.
--- NOTE | 2016-10-20 08:59 | NUR ---
PT ASKED FOR MIRALAX. HAS NOT HAD BM SINCE BEFORE ADMISSION. SPOKE WITH GERMAIN PORTER ABOUT GETTING AN ORDER. ORDER WAS GIVEN. WHEN ASKED PT WHAT HE WOULD LIKE IT MIXED WITH HE ASKED ME TO HOLD OFF FOR THE TIME BEING. HE DIDN'T WANT TO "HAVE ALL THAT LAXATIVE ON TOP OF THE OTHER," WHICH WAS A COLACE. HE THEN ASKED TO BE ASSISTED UP TO TOILET.
--- NOTE | 2016-10-20 09:26 | NUR ---
FAMILY AT BEDSIDE. SPOKE WITH SON MADY ABOUT HAVING AN ORDER FOR CASE MANAGEMENT TO COME TO SEE ABOUT HOME NEEDS. PT RESTING IN BED WITH CPAP ON AT THIS TIME.
--- NOTE | 2016-10-20 09:50 | NUR ---
10/20/2016 9:36 DCP: Discharge Planning Patient Name: GIANNA GREER Encounter No: [id number] : 1945 Primary Insurance: MEDICARE A & B Anticipated DC Date: 10-21-2016 Planned Disposition: Home External Planned Provider: Dragan Michele DCP follow-up note: Anticipate DC home tomorrow. Order rec'd for [facility]. Will send request when DC order entered. Patient and family in agreement with discharge plan. Case management will follow and assist as needed. Latanya Duran
--- NOTE | 2016-10-20 12:00 | NUR ---
PT WALKED DOWN TO EMPLOYEE ENTRY DOOR AND BACK TO ROOM WITH NURSE. NO DISTRESS NOTED. PAUSED AT DOORS FOR A FEW SECONDS BEFORE CONTINUING ON.
--- NOTE | 2016-10-20 13:31 | NUR ---
PT WALKED FROM ROOM TO END OF UNIT TO EMPLOYEE ENTRY AND BACK TO ROOM. ASSISTED TO TOILET, AND NOW UP IN CHAIR AT BEDSIDE.
--- NOTE | 2016-10-20 15:00 | NUR ---
FAMILY AT BEDSIDE FOR 3PM VISITATION. NO NEEDS VOICED AT THIS TIME OTHER THAN FOR A CUP OF ICE.
--- NOTE | 2016-10-20 16:20 | NUR ---
PT ASSISTED UP TO TOILET. NO DISTRESS NOTED.
--- NOTE | 2016-10-20 19:59 | NUR ---
REPORT RECIEVED. ASSESSMENT COMPLETE PER FLOW SHEET. VSS. PT AWAKE ALERT ORIENTED X3. O2 VIA HOME CPAP UNIT O2 SAT 98% RR 16 NON LABORED REGULAR. BILAT ALL LOBES CLEAR. HEART S1S2 HR 78 NSR. TPM INTACT DRSG CDI. MIDTSERNAL DRSG CDI. BS ACTIVE X4. R LEG DRSG CDI. GENERALIZED EDEMA NOTED. BIALT RADIAL PEDAL PULSES PALP +2. DENIES PAIN OR NEEDS. WILL CONTINUE TO MONITOR.
--- NOTE | 2016-10-20 23:16 | NUR ---
REASSESSMENT COMPLETE PER FLOW SHEET. PT AGITATED REQUEST TO BE LEFT ALONE UNTIL RADIOLOGY COMES TO REST. VSS WILL CONTINUE TO MONITOR.
[2016-10-21] VITALS (13 sets, daily range): BP systolic 114–150; BP diastolic 52–79
--- NOTE | 2016-10-21 01:20 | NUR ---
PT SLEEPING DENIES NEEDS. VSS
--- NOTE | 2016-10-21 03:18 | NUR ---
REASSESSMENT COMPLETE PER FLOW SHEET. VSS. NO NEW CHANGES. ASSISTED TO BEDSIDE COMMODE. DENIES FURTHER NEEDS WILL CNOTINUE TO MONITOR.
[2016-10-21 06:15] LABS: HEMATOCRIT 29.5 % (42.0-54.0); HEMOGLOBIN 9.5 g/dL (13.5-17.5); MCH 30.8 pg (26.0-34.0); MCHC 32.2 g/dL (31.0-37.0); MCV 95.8 fL (80.0-100.0); MEAN PLATELET VOLUME 9.5 fL (7.4-10.4); RBC 3.08 10x6/uL (4.20-6.10); RDW 14.7 % (11.5-14.5); WBC 7.9 10x3/uL (4.8-10.8)
[2016-10-21 06:29] LABS: ALBUMIN 2.7 g/dL (3.4-5.0); ANION GAP 15.1 mmol/L (8-16); BILIRUBIN - TOTAL 0.92 mg/dL (0.2-1.3); CALCIUM 8.2 mg/dL (8.5-10.1); CARBON DIOXIDE 25.3 mmol/L (21.0-32.0); CREATININE - SERUM 1.7 mg/dL (0.6-1.3); POTASSIUM - SERUM 3.4 mmol/L (3.5-5.1); PROTEIN - SERUM 6.4 g/dL (6.4-8.2)
--- NOTE | 2016-10-21 07:00 | NUR ---
PT REPORT REC'D, PT CARE ASSUMED. PT RESTING WITH EYES CLOSED, NO C/O PAIN, VSS, ROOM AIR. LEFT SUBCLAVIAN CVL WITH POTASSIUM INFUSING, SEE FLOW SHEET, DRESSING CDI. MIDSTERNAL INCISION, DRESSING CDI, SUBSTERNAL TPM WIRES SECURED TO CHEST, DRESSING CDI. RIGHT LEG HARVEST SITES, DRESSING CDI. BATHROOM NEEDED. TPM VVI-50 SENSING. SHIFT ASSESSMENT COMPLETED, SEE FLOW SHEET. ROOM FREE OF CLUTTER, CALL LIGHT IN REACH, WILL CONTINUE TO MONITOR PT.
--- NOTE | 2016-10-21 07:15 | NUR ---
TRANSFERRED PT FROM BED TO CHAIR, PT TOLERATED WELL, WILL CONTINUE TO MONITOR PT.
--- NOTE | 2016-10-21 08:15 | NUR ---
AMBULATED PT, PT TOLERATED WELL, VSS, WILL CONTINUE TO MONITOR PT.
[2016-10-21] MEDS ORDERED: HEMOCYTE PLUS C1 CAP PO (08:19)
[2016-10-21] MEDS ORDERED: CORDARONE200 MG PO (08:20)
[2016-10-21] MEDS ORDERED: LASIX40 MG PO (08:22)
[2016-10-21] MEDS ORDERED: K-DUR20 MEQ PO (08:24)
[2016-10-21] MEDS ORDERED: ALDACTONE25 MG PO (08:25)
[2016-10-21] MEDS ORDERED: HYDROCODONE-APA1 TAB PO (08:26)
--- NOTE | 2016-10-21 09:45 | NUR ---
GERMAIN RITTER RN AT THE BEDSIDE, TPM PULLED, VSS, WILL CONTINUE TO MONITOR PT.
--- NOTE | 2016-10-21 11:00 | NUR ---
TRANSFERRED PT FROM BED TO CHAIR, PT TOLERATED WELL. REASESSMENT COMPLETED, SEE FLOW SHEET. ROOM FREE OF CLUTTER, CALL LIGHT IN REACH, WILL CONTINUE TO MONITOR PT.
--- NOTE | 2016-10-21 13:45 | NUR ---
PT LAYING IN BED, REMOVED LEFT SUBCLAVIAN CVL, 4X4'S AND PRESSURE APPLIED, TEGADERM APPLIED. D/C PAPERS EXPLAINED AND SIGNED. PT AND VERBALIZED UNDERSTANDING. WILL CONTINUE TO MONITOR PT.
--- NOTE | 2016-10-21 14:00 | NUR ---
D/C'ED PT PER WHEELCHAIR TO VEHICLE, PT'S DRIVING.
--- NOTE | 2016-10-22 12:54 | NUR ---
Late Entry - 10/21/2016 14:12 DCP: Discharge Planning Patient Name: GIANNA GREER Encounter No: [id number] : 1945 Primary Insurance: MEDICARE A & B Anticipated DC Date: 10-21-2016 Planned Disposition: Home External Planned Provider: [facility] DCP follow-up note: DC order rec'd. [facility] referral faxed. Patient and family in agreement with discharge plan. No changes to plan. Latanya Duran
== END 2016-10-21 14:00 | disposition home or self-care (01) | DRG 236 ==
LOC: D.ER 21:31 → D.CVICU 23:09
PROVIDERS: Emergency Medicine; Internal Medicine Cardiovascular Disease; ADMIT Family Medicine
PROC: 021109W Bypass Coronary Artery, Two Arteries from Aorta with Autologous Venous Tissue, Open Approach (ICD-10-PCS; 2016-10-16)
PROC: 06BP0ZZ Excision of Right Saphenous Vein, Open Approach (ICD-10-PCS; 2016-10-16)
PROC: 5A1221Z Performance of Cardiac Output, Continuous (ICD-10-PCS; 2016-10-16)
PROC: 02100ZC Bypass Coronary Artery, One Artery from Thoracic Artery, Open Approach (ICD-10-PCS; principal; 2016-10-16 07:30)
DX: I25.110 Atherosclerotic heart disease of native coronary artery with unstable angina pectoris (principal); I10 Essential (primary) hypertension; K21.9 Gastro-esophageal reflux disease without esophagitis; K22.70 Barrett's esophagus without dysplasia; F41.9 Anxiety disorder, unspecified; F32.9 Major depressive disorder, single episode, unspecified; G47.30 Sleep apnea, unspecified; E11.21 Type 2 diabetes mellitus with diabetic nephropathy; E78.1 Pure hyperglyceridemia; I49.1 Atrial premature depolarization; I48.0 Paroxysmal atrial fibrillation; Z86.73 Personal history of transient ischemic attack (TIA), and cerebral infarction without residual deficits; Z87.891 Personal history of nicotine dependence

== ENCOUNTER → 2016-10-23 09:15 | Outpatient (CLI) | payer MEDICARE, BC ==
[2016-10-15 09:53] VITALS: BMI 40.6
[~2016-10-23 09:15] MED LIST changes: +ALDACTONE25 MG PO; +CORDARONE200 MG PO; +HEMOCYTE PLUS C1 CAP PO; +HUMALOG 30100 UNITS/ SC; +HYDROCODONE-APA1 TAB PO; +ISOSORBIDE MONO30 M1 PO; +LASIX40 MG PO; +TRESIBA FL100 UNIT/1
[2016-10-23 09:56] LABS: ANION GAP 13.2 mmol/L (8-16); CALCIUM 8.9 mg/dL (8.5-10.1); CARBON DIOXIDE 28.8 mmol/L (21.0-32.0); CREATININE - SERUM 1.7 mg/dL (0.6-1.3)
== END | disposition home or self-care (01) ==
LOC: D.LAB 09:15
PROVIDERS: Internal Medicine Cardiovascular Disease
DX: E87.6 Hypokalemia (principal); Z79.899 Other long term (current) drug therapy

== ENCOUNTER → 2016-10-27 09:40 | Outpatient (CLI) | payer MEDICARE, BC ==
[2016-10-15 09:53] VITALS: BMI 40.6
[2016-10-27 10:22] LABS: ANION GAP 17.1 mmol/L (8-16); CALCIUM 9.4 mg/dL (8.5-10.1); CARBON DIOXIDE 23.2 mmol/L (21.0-32.0); CREATININE - SERUM 2.1 mg/dL (0.6-1.3); POTASSIUM - SERUM 4.3 mmol/L (3.5-5.1)
== END | disposition home or self-care (01) ==
LOC: D.LAB 09:40
PROVIDERS: Internal Medicine Cardiovascular Disease
DX: E87.6 Hypokalemia (principal); Z79.899 Other long term (current) drug therapy

== ENCOUNTER → 2016-10-29 09:12 | Outpatient (CLI) | payer MEDICARE, BC ==
[2016-10-15 09:53] VITALS: BMI 40.6
[2016-10-29 10:08] LABS: ANION GAP 15.4 mmol/L (8-16); CARBON DIOXIDE 24.9 mmol/L (21.0-32.0); POTASSIUM - SERUM 4.3 mmol/L (3.5-5.1)
== END | disposition home or self-care (01) ==
LOC: D.LAB 09:12
PROVIDERS: Internal Medicine Cardiovascular Disease
DX: E87.6 Hypokalemia (principal); Z79.899 Other long term (current) drug therapy

== ENCOUNTER → 2016-11-02 09:30 | Outpatient (CLI) | payer MEDICARE, BC ==
[2016-10-15 09:53] VITALS: BMI 40.6
[2016-11-02 10:06] LABS: ANION GAP 13.3 mmol/L (8-16); CALCIUM 8.7 mg/dL (8.5-10.1); CARBON DIOXIDE 23.4 mmol/L (21.0-32.0); CREATININE - SERUM 1.6 mg/dL (0.6-1.3); POTASSIUM - SERUM 3.7 mmol/L (3.5-5.1)
== END | disposition home or self-care (01) ==
LOC: D.LAB 09:30
PROVIDERS: Internal Medicine Cardiovascular Disease
DX: E87.6 Hypokalemia (principal); Z79.899 Other long term (current) drug therapy

== ENCOUNTER → 2016-11-05 08:15 | Outpatient (CLI) | payer MEDICARE, BC ==
[2016-10-15 09:53] VITALS: BMI 40.6
[2016-11-05 08:52] LABS: HEMATOCRIT 41.3 % (42.0-54.0); HEMOGLOBIN 13.1 g/dL (13.5-17.5); MCH 29.3 pg (26.0-34.0); MCHC 31.7 g/dL (31.0-37.0); MCV 92.4 fL (80.0-100.0); MEAN PLATELET VOLUME 8.9 fL (7.4-10.4); RBC 4.47 10x6/uL (4.20-6.10); RDW 15.3 % (11.5-14.5); WBC 8.1 10x3/uL (4.8-10.8)
[2016-11-05 09:17] LABS: ANION GAP 15.9 mmol/L (8-16); CARBON DIOXIDE 26.7 mmol/L (21.0-32.0); CREATININE - SERUM 1.9 mg/dL (0.6-1.3); POTASSIUM - SERUM 3.6 mmol/L (3.5-5.1)
== END | disposition home or self-care (01) ==
LOC: D.RAD 08:15
PROVIDERS: Internal Medicine Cardiovascular Disease
DX: J91.8 Pleural effusion in other conditions classified elsewhere (principal); D64.9 Anemia, unspecified; Z51.81 Encounter for therapeutic drug level monitoring; Z79.899 Other long term (current) drug therapy

== ENCOUNTER → 2018-05-26 08:34 | Outpatient (CLI) | payer MEDICARE, BC ==
[2016-10-15 09:53] VITALS: BMI 40.6
== END | disposition home or self-care (01) ==
LOC: D.RAD 08:34
DX: R13.10 Dysphagia, unspecified (principal); R05 Cough; Z87.01 Personal history of pneumonia (recurrent)

== ENCOUNTER → 2018-08-11 09:35 | Outpatient (CLI) | payer MEDICARE, BC ==
[2016-10-15 09:53] VITALS: BMI 40.6
== END | disposition home or self-care (01) ==
LOC: D.RT 09:35
PROVIDERS: ATTEND Internal Medicine Cardiovascular Disease
DX: R06.00 Dyspnea, unspecified (principal)

== ENCOUNTER 2018-10-31 10:37 | Outpatient (CLI) | payer MEDICARE, BC ==
[~2018-10-31] VITALS: Ht 170.2 cm; Wt 122.7 kg
--- NOTE | ~2018-10-31 | HEMODYNAMI ---
PATIENT:GIANNA GREER MEDICAL RECORD: [id number] : 49 LOCATION:D.CAT ADMISSION DATE: 10/31/18 Generatedon:10/31/201813:36 Patient name: GIANNA GREER Patient #: [id number] SSN: [id number] : 1945 Date of study: 10/31/2018 Page: Of Hemodynamic Procedure Report Patient Data Patient Demographics Procedure consent was obtained First Name: GIANNA Gender: Male Last Name: ZOEY : 1945 Middle Initial: S Age: 73 year(s) Patient #: [id number] Race: SSN: [id number] Additional ID: [id number] Contact details [address]: [address] [place] [address] [address] State: [place] City: [place] Zip code: [address] Past Medical History Allergies Allergen Reaction Date Comments Reported Codeine 10/08/2016 Other allergy 10/08/2016 Fentanyl Admission Admission Data Admission Date: 10/31/2018 Admission Time: 10:37 Lab Results Lab Result Date: 10/31/2018 Lab Result Time: 0:00 Biochemistry Name Units Result Min Max Creatinine mg/dl 1.7 --(----)-* 0.6 1.3 CBC Name Units Result Min Max Hemoglobin g/dl 14.9 --(-*--)-- 13.5 17.5 Procedure Procedure Types Cath Procedure Diagnostic Procedure Cardioversion External Procedure Description Procedure Date Procedure Date: 10/31/2018 Procedure Start Time: 13:26 Procedure End Time: 13:35 Procedure Staff Name Function Christian Seals RN Nurse Micha Chaparro MD Performing Physician Crow Salcedo RT Monitor Vitaliy Martinez Jr RESEARCH RN SPEC Additional personnel Procedure Medications Medication Administration Route Dosage Oxygen etCO2 Nasal cannula 2 l/min Refer to Anesthesia Notes for Sedation Medications Hemodynamics Rest HGB: 14.9 (g/dl) Heart Rate: 64 (bpm) Snapshots Pre Cath Intra NCS Post Cath Vital Signs Time Heart Resp SPO2 etCO2 NIBP (mmHg) Rhythm Pain Sedation Rate (ipm) (%) (mmHg) Status Level (bpm) 12:59:55 66 12 95 0 150/78(133) A-Flutter (Missing) 10(A) 13:03:47 63 18 93 0 144/83(104) A-Flutter (Missing) 10(A) 13:12:12 56 18 97 11.9 161/71(112) A-Flutter (Missing) 10(A) 13:17:01 64 12 98 0 149/93(100) A-Flutter (Missing) 10(A) 13:25:00 60 17 97 5.2 98/61(93) A-Flutter (Missing) 10(A) 13:29:39 73 21 97 4.4 143/90(113) A-Flutter (Missing) 10(A) 13:32:31 70 20 97 3.7 144/76(102) NSR (Missing) 10(A) Medications Time Medication Route Dose Verified Delivered Reason Notes Effective ness by by 13:05:49 Oxygen etCO2 2 Abdirizak Gonzales used for Nasal l/min St Tramaine Seals RN procedure cannula 13:05:55 Refer to Abdirizak Gonzales Anesthesia St Tramaine Seals RN Notes for Sedation Medications Procedure Log Time Note 12:41:03 Christian Seals RN sent for patient. Start room use. 12:41:04 Time tracking: Regular hours (M-F 7:00 - 5:00) 12:41:09 Plan of Care:Hemodynamics will remain stable., Cardiac rhythm will remain stable., Comfort level will be maintained., Respiratory function will remain adequate., Patient/ family verbilizes understanding of procedure., Procedure tolerated without complication., Recovers from procedure without complications.. 12:58:41 Patient received from Pre/Post Procedure Room to CCL 3 Alert and oriented. Tansferred to table in Supine position. 12:58:43 Warm blankets applied, and chinmay hugger turned on for patient comfort. 12:58:44 Correct patient and procedure confirmed by team. 12:58:46 Signed procedure consent form obtained from patient. 12:58:47 ECG and BP/O2 sat monitors applied to patient. 12:59:06 Vital chart was started 12:59:50 H&P Date Dictated: 10/26/2018 Within 30 days and on chart.. 12:59:52 Pre-procedure instructions explained to patient. 13:00:00 Pre-op teaching completed and patient verbalized understanding. 13:00:02 Family in waiting room. 13:00:05 Patient NPO since Midnight. 13:00:13 Is the patient allergic to Iodine/contrast media? N/A. 13:00:16 Was the patient premedicated? N/A 13:00:20 Is patient on blood thinner?Yes 13:00:42 ACC The patient was administered the following blood thiners within the last 24 hours: Eliquis 13:00:50 Patient diabetic? Yes. 13:01:00 If on Metformin: Last Dose? 10/31/2018 13:01:07 ----Pre-sedation anethsthesia assessment.---- 13:01:10 Previous problem with sedation/anesthesia? No ? 13:01:12 Snore? Yes 13:01:14 Sleep apnea? No 13:01:17 Deviated septum? No 13:01:19 Opens mouth fully? Yes 13:01:21 Sticks out tongue? Yes 13:01:28 Dentures? No ? 13:01:30 Airway obstruction? No ? 13:02:24 Baseline sample Acquired. 13:03:23 IV patent on arrival in left forearm with 0.9% NaCl at O. 13:03:31 Alarms reviewed by Nida Hagan 13:05:49 Oxygen 2 l/min etCO2 Nasal cannula was administered by Christian Seals RN; used for procedure; 13:05:55 Refer to Anesthesia Notes for Sedation Medications was administered by Christian Seals RN; ; 13:06:15 Quick Combo opened to sterile field. 13:06:25 Quick combo pads placed on patients chest and back. 13:08:29 Lab Result : Creatinine 1.7 mg/dl 13:08:29 Lab Result : Hemoglobin 14.9 g/dl 13:22:04 Vitaliy Martinez Jr, CRNA present and monitoring patient for TIVA. 13:23:54 Rhythm: atrial flutter 13:24:59 Physician arrived 13:25:00 --------ALL STOP TIME OUT------ 13:25:01 Final Timeout: patient, procedure, and site verified with staff and physician. All members of the team are in agreement. 13:25:37 Fire Safety Assessment: C--Open oxygen or nitrous oxide is being used. 13:25:48 Physical assessment completed. ASA score P 3 - A patient with severe systemic disease as per Micha Chaparro MD. 13:26:07 Sedation plan: TIVA Medication:Propofol 13:26:35 Procedure started. 13:26:35 Full Disclosure recording started 13:27:47 Defibrillator synced and charged to 50 Joules. 13:27:55 Shock delivered. 13:28:21 Patient cardioverted to sinus rhythm . 13:29:04 Procedure ended.(Physican Out) 13:30:20 Post-procedure physical assessment completed. ASA score P 3 - A patient with severe systemic disease as per Micha Chaparro MD. 13:31:11 Patient needs reinforcement of post procedure teaching. 13:31:13 Procedure and supply charges have been captured, reviewed, submitted and are correct. 13:35:23 Vital chart was stopped 13:35:24 See physician's report for complete and final results. 13:35:27 Report given to Pre/Post Procedure Room. 13:35:33 Patient transfered to Pre/Post Procedure Room with Stretcher. 13:35:36 Procedure ended. 13:35:36 Full Disclosure recording stopped 13:35:41 End room use (Document Last) Device Usage Item Manufacture Quantity Catalog Hospital Part Current Minimal Lot# / Name Number Charge Number Stock Daily hayward# Code CleverMiles 1 [id number] Combo Signature Audit [place] Stage Time Signature Unsigned Intra-Procedure 10/31/2018 Crow Salcedo 1:36:17 PM RT(R) (CV) Signatures Monitor : Crow Salcedo RT Signature : Date : Time : [address] [address]
[2018-10-31] MEDS ORDERED: LIPITOR10 MG PO (11:12)
[2018-10-31] MEDS ORDERED: ELIQUIS5 MG PO ×2 (11:13→11:14)
[2018-10-31] MEDS ORDERED: BETAPACE 80 MG80 MG PO (11:13)
[2018-10-31 11:23] VITALS: BP 117/62; Ht 170.2 cm; Wt 122.7 kg
[2018-10-31 11:30] LABS: BASOPHILS 0.6 % (0-2); EOSINOPHILS 2.7 % (0-7); HEMATOCRIT 44.1 % (42.0-54.0); HEMOGLOBIN 14.9 g/dL (13.5-17.5); IMMATURE GRANULOCYTES 0.2 % (0-5); LYMPHOCYTES 14.7 % (15-50); MCH 29.2 pg (26.0-34.0); MCHC 33.8 g/dL (31.0-37.0); MCV 86.5 fL (80.0-100.0); MEAN PLATELET VOLUME 9.9 fL (7.4-10.4); MONOCYTES 10.3 % (2-11); NEUTROPHILS 71.5 % (40-80); PLATELET COUNT 260 10x3/uL (130-400); RDW 15.8 % (11.5-14.5); WBC 10.9 10x3/uL (4.8-10.8)
[2018-10-31 11:36] LABS: ANION GAP 15.6 mmol/L (8-16); CALCIUM 8.9 mg/dL (8.5-10.1); CARBON DIOXIDE 24.4 mmol/L (21.0-32.0); CREATININE - SERUM 1.7 mg/dL (0.6-1.3)
[2018-10-31 11:39] LABS: INR 1.39 (0.85-1.17); PROTIME 16.5 SECONDS (11.6-15.0)
--- NOTE | 2018-10-31 13:40 | NUR ---
PATIENT ARRIVED TO ROOM 4 VIA STRETCHER, PLACED ON 2L NC AND CM. FAMILY PRESENT AT BEDSIDE. WILL CONTINUE TO MONITOR.
--- NOTE | 2018-10-31 13:55 | NUR ---
PATIENT AWAKE, HEAD OF BED AT 60 DEGREES. GIVEN TURKEY SANDWICH AND DIET COLA PER PATIENT REQUEST, TOLERATING WITH NO N/V. PHYSICIAN AT BEDSIDE TO UPDATE PATIENT AND FAMILY. VSS ON 2L NC.
--- NOTE | 2018-10-31 14:25 | NUR ---
VSS ON ROOM AIR. NO C/O PAIN, NUMBNESS, OR TINGLING. NSR ON CM. FAMILY AT BEDSIDE. IV REMOVED.
--- NOTE | 2018-10-31 14:45 | NUR ---
WRITTEN AND VERBAL EDUCATION REGARDING DISCHARGE INFORMATION AND MEDCATION COMPLIANCE GIVEN TO PATIENT AND FAMILY, ALL QUESTIONS ANSWERED, PATIENT VOICES UNDERSTANDING. PATIENT VOIDED WITHOUT DIFFICULTY. PATIENT TRANSPORTED VIA WHEELCHAIR TO CAR WITH FAMILY DRIVING, ALL BELONGINGS WITH PATIENT.
== END 2018-10-31 14:45 ==
LOC: D.CATH 10:37
PROVIDERS: ATTEND Internal Medicine Cardiovascular Disease
DX: I48.92 Unspecified atrial flutter (principal); Z01.812 Encounter for preprocedural laboratory examination

== ENCOUNTER → 2019-10-16 09:00 | Outpatient (CLI) | payer MEDICARE, BC ==
[2018-10-31 11:23] VITALS: BMI 42.4
[~2019-10-16 09:00] MED LIST changes: +BETAPACE 80 MG80 MG PO; +ELIQUIS5 MG PO; +LIPITOR10 MG PO
== END | disposition home or self-care (01) ==
LOC: D.HCCECHO 08:30
PROVIDERS: ATTEND Internal Medicine Cardiovascular Disease
DX: I25.10 Atherosclerotic heart disease of native coronary artery without angina pectoris (principal); I10 Essential (primary) hypertension

== ENCOUNTER 2019-10-24 07:44 | Outpatient (CLI) | payer MEDICARE, BC ==
[~2019-10-24] VITALS: Ht 170.2 cm; Wt 126.0 kg
--- NOTE | ~2019-10-24 | HEMODYNAMI ---
PATIENT:GIANNA GREER MEDICAL RECORD: [id number] : 49 LOCATION:DVanceCAT ADMISSION DATE: 10/24/19 Generatedon:10/24/201910:47 Patient name: GIANNA GREER Patient #: [id number] : 1945 Date of study: 10/24/2019 Page: Of Hemodynamic Procedure Report Patient Data Patient Demographics Procedure consent was obtained First Name: GIANNA Gender: Male Last Name: ZOEY : 1945 Middle Initial: BARRETT Age: 74 year(s) Patient #: [id number] Race: SSN: [id number] Additional ID: [id number] Contact details Address: [address] [place] [address] [address] State: [place] City: [place] Zip code: [address] Past Medical History Allergies: No known allergies Admission Admission Data Admission Date: 10/24/2019 Admission Time: 7:44 Arrival Date: 10/24/2019 Arrival Time: 0:00 Admit Source: Other Procedure Procedure Types Cath Procedure Diagnostic Procedure LHC LHC w/Coronaries w/Grafts Sedation Charges Moderate Sedation up to 45 minutes Procedure Description Procedure Date Procedure Date: 10/24/2019 Procedure Start Time: 10:07 Procedure End Time: 10:45 Procedure Staff Name Function Micha Chaparro MD Performing Physician Ami Matthews RT Monitor Michelle Desouza RT Scrub Cathy Bustillo RN Nurse Cathy Bustillo RN Nurse Procedure Data Cath Procedure Fluoroscopy Diagnostic fluoroscopy Total fluoroscopy Time: 8.9 time: 8.9 min min Diagnostic fluoroscopy Total fluoroscopy dose: dose: 1576 mGy 1576 mGy Contrast Material Contrast Material Type Amount (ml) Isovue 300 112 Entry Location Entry Primary Successful Side Size Upsize Upsize Entry Closure Succes sful Closure Location (Fr) 1 (Fr) 2 (Fr) Remarks Device Remarks Femoral Right 5 Fr Exoseal artery Estimated blood loss: 5 ml Diagnostic catheters Device Type Used For End Catheter Placement MULTIPACK JL 4.0 5Fr Left Coronary catheter Angiography DIAGNOSTIC AR MOD 5Fr Multi-vessel Catheter ([id number]) Angiography DIAGNOSTIC LCB 5Fr Multi-vessel catheter ([id number]) Angiography DIAGNOSTIC AR2 MOD 5 Fr Multi-vessel catheter ([id number]) Angiography DIAGNOSTIC IM 5Fr SVG Angiography catheter ([id number]) MULTIPACK Pigtail 5 Fr LV Angiography catheter Procedure Complications No complications Procedure Medications Medication Administration Route Dosage Oxygen etCO2 Nasal cannula 2 l/min Heparin Flush Bag added to field 2 bags (1000units/500ml NS) Lidocaine 2% added to field 20 0.9% NaCl I.V. 100 ml/hr Versed 0.5 mg Fentanyl I.V. 25 mcg Versed 0.5 mg Fentanyl I.V. 25 mcg Versed 0.5 mg Fentanyl I.V. 25 mcg Versed 0.5 mg Hemodynamics Rest Heart Rate: 78 (bpm) Pressure Samples Time Site Value (mmHg) Purpose Heart Use Rate(bpm) 10:37 LV 179/30,68 Snapshot 63 10:38 AO 134/66(92) Pullback 44 10:38 LV 139/11,22 Pullback 44 Gradients Valve Time Site 1 Site 2 Mean SEP/DFP Peak To Heart Use (mmHg) (sec/min) Peak Rate (mmHg) (bpm) Aortic 10:38 LV AO 13 10 5 44 139/11,22 134/66(92) Calculations Valve P-P Mean Valve Index Valve Source Name Gradient Area Flow (cm2) Aortic 5 13 5 13 Snapshots Pre Cath Intra NCS Post Cath Vital Signs Time Heart Resp SPO2 etCO2 NIBP (mmHg) Rhythm Pain Sedation Rate (ipm) (%) (mmHg) Status Level (bpm) 9:42:48 63 19 98 0 168/88(135) NSR 0 (11) 10(A) , No pain 9:47:08 63 21 98 0 155/84(136) NSR 0 (11) 10(A) , No pain 9:51:32 63 31 96 0 154/80(131) NSR 0 (11) 9(A) , No pain 9:55:56 62 15 97 0 148/73(125) NSR 0 (11) 9(A) , No pain 10:00:16 63 14 97 0 159/79(121) NSR 0 (11) 9(A) , No pain 10:05:34 63 19 96 0 159/83(128) NSR 0 (11) 9(A) , No pain 10:09:52 63 14 96 0 141/79(118) NSR 0 (11) 9(A) , No pain 10:14:12 63 13 96 0 145/77(121) NSR 0 (11) 9(A) , No pain 10:18:28 62 13 96 0 136/70(110) NSR 0 (11) 9(A) , No pain 10:22:46 63 24 96 0 137/69(99) NSR 0 (11) 9(A) , No pain 10:27:06 63 15 97 0 138/69(108) NSR 0 (11) 9(A) , No pain 10:31:22 63 12 97 0 142/74(116) NSR 0 (11) 9(A) , No pain 10:35:40 63 12 97 0 140/73(106) NSR 0 (11) 9(A) , No pain 10:40:00 62 15 97 0 138/69(101) NSR 0 (11) 10(A) , No pain 10:44:18 62 13 98 0 138/73(109) NSR 0 (11) 10(A) , No pain Medications Time Medication Route Dose Verified Delivered Reason Notes Eff ectiveness by by 9:35:25 Oxygen etCO2 2 Cathy Cathy Per Nasal l/min Iwona Bustillo, physician cannula RN RN 9:35:36 Heparin Flush added 2 Cathy Cathy used for Bag to bags Iwona Bustillo procedure (1000units/500ml field RN RN NS) 9:35:46 Lidocaine 2% added 20ml Cathy Micha for local to vial Shankar Bustillo MD anesthetic field RN 9:35:59 0.9% NaCl I.V. 100 Catyh Cathy Per ml/hr Iwona Bustillo, physician RN RN 9:48:09 Versed 0.5 Cathy Cathy for mg Iwona Bustillo, sedation RN RN 9:48:14 Fentanyl I.V. 25 Cathy Cathy for mcg Iwona Bustillo, sedation RN RN 10:05:50 Versed 0.5 Cathy Cathy for mg Iwona Bustillo, sedation RN RN 10:05:55 Fentanyl I.V. 25 Cathy Cathy for mcg Bustillo, Bustillo, sedation RN RN 10:18:18 Versed 0.5 Cathy Cathy for mg Bustillo, Bustillo, sedation RN RN 10:18:21 Fentanyl I.V. 25 Cathy Cathy for mcg Bustillo, Bustillo, sedation RN RN 10:38:18 Versed 0.5 Cathy Cathy for mg Bustillo, Bustillo, sedation RN roving inspector Log Time Note 9:: Informed consent obtained and on chart 9::38 Diagnostic Cath Status : Elective 9:23:12 Arrival Date: 10/24/2019 12:00:00 AM 9:24:10 Procedure Status Elective Heart Cath (OP). 9:24:15 Cathy Bustillo RN sent for patient. Start room use. 9:24:23 Time tracking: Regular hours (M-F 7:00 - 5:00) 9:24:27 Plan of Care:Hemodynamics will remain stable., Cardiac rhythm will remain stable., Comfort level will be maintained., Respiratory function will remain adequate., Patient/ family verbilizes understanding of procedure., Procedure tolerated without complication., Recovers from procedure without complications.. 9:24:32 Admit Source: Other 9:24:41 H&P Date Dictated: 10/11/2019 Within 30 days and on chart.. 9:24:42 Pre-procedure instructions explained to patient. 9:24:42 Pre-op teaching completed and patient verbalized understanding. 9:24:44 Family in waiting room. 9:24:45 Patient NPO since Midnight. 9:26:02 Patient allergic to No known allergies 9:26:09 Alarms reviewed by R. N. 9:26:10 Sharps counted by scrub and verified by R.N. 9:27:37 Patient received from Pre/Post Procedure Room to [facility] 2 Alert and oriented. Tansferred to table in Supine position. 9:27:38 Warm blankets applied, and chinmay hugger turned on for patient comfort. 9:27:38 Correct patient and procedure confirmed by team. 9:27:39 ECG and BP/O2 sat monitors applied to patient. 9:35:25 Oxygen 2 l/min etCO2 Nasal cannula was administered by Cathy Bustillo RN; Per physician; Verbal order read back and verified. 9:35:36 Heparin Flush Bag (1000units/500ml NS) 2 bags added to field was administered by Cathy Bustillo RN; used for procedure; Verbal order read back and verified. 9:35:46 Lidocaine 2% 20ml vial added to field was administered by Micha Chaparro MD; for local anesthetic; Verbal order read back and verified. 9:35:59 0.9% NaCl 100 ml/hr I.V. was administered by Cathy Bustillo RN; Per physician; Verbal order read back and verified. 9:41:36 Baseline sample Acquired. 9:41:36 Vital chart was started 9::42 Rhythm: sinus rhythm 9:41:44 Full Disclosure recording started 9::46 Is the patient allergic to Iodine/contrast media? No. 9:41:47 Was the patient premedicated? Yes 9:41:48 Is patient on blood thinner?Yes 9:41:50 ACC The patient was administered the following blood thiners within the last 24 hours: Eliquish 9:41:52 Patient diabetic? Yes. 9:42:03 If diabetic: On Metformin? No 9:42:06 Previous problem with sedation/anesthesia? No ? 9:42:07 Snore? Yes 9:42:08 Sleep apnea? Yes 9:42:09 Deviated septum? No 9:42:09 Opens mouth fully? Yes 9:42:10 Sticks out tongue? Yes 9:42:12 Airway obstruction? No ? 9:42:14 Dentures? No ? 9:42:17 Pre procedure: right dorsailis pedis pulse 2+ Normal; easily identifiable; not easily obliterated 9:42:19 Pre procedure: left dorsailis pedis pulse 2+ Normal; easily identifiable; not easily obliterated 9:42:22 Patient pain scale 0/10 ?. 9:42:27 IV patent on arrival in left forearm with 0.9% NaCl at [facility]. 9:42:29 Lab results completed and on chart. 9:42:50 Stress Test: no; N/A ? 9:45:06 Risk of Mortality: 0.1 9:45:09 Risk of blood transfusion: 0.6 9:45:12 Risk of MERLE: 3.5 9:45:16 Right groin area was prepped with chlora-prep and draped in sterile fashion 9:46:59 Physician arrived 9:46:59 --------ALL STOP TIME OUT------ 9:47:00 Final Timeout: patient, procedure, and site verified with staff and physician. All members of the team are in agreement. 9:47:01 Right groin site verified by team. 9:47:05 Fire Safety Assessment: A--An alcohol-based skin anteseptic being used preoperatively., C--Open oxygen or nitrous oxide is being used., D--An ESU, laser, or fiber-optic light is being used. 9:47:09 Physical assessment completed. ASA score P 2 - A patient with mild systemic disease as per Micha Chaparro MD. 9:47:13 3b) 30-44 Moderately reduced kidney function. 9:47:16 Maximum allowable contrast dose (3.7 X eGFR X 0.75)111 ml. 9:47:20 Sedation plan: IV Moderate Sedation Medication:Versed, Fentanyl 9:47:22 Use device set Femoral Dx 9:47:23 ACIST Syringe (97140) opened to sterile field. 9:47:24 Bag Decanter (2002S) opened to sterile field. 9:47:24 Medline Cath Pack ([id number]) opened to sterile field. 9:47:25 ACIST Hand Control (82141) opened to sterile field. 9:47:26 ACIST Manifold (94417) opened to sterile field. 9:47:26 DIAGNOSTIC Multipack 5Fr catheter set (AG6908) opened to sterile field. 9:47:26 Tegaderm 4 x 4 (1626W) opened to sterile field. 9:47:27 SHEATH 5FR [place] (BCF158) opened to sterile field. 9:47:28 EMERALD Guide Wire (769-865) opened to sterile field. 9:48:09 Versed 0.5 mg was administered by Cathy Bustillo RN; for sedation; Verbal order read back and verified. 9:48:14 Fentanyl 25 mcg I.V. was administered by Cathy Bustillo RN; for sedation; Verbal order read back and verified. 9:51:23 Zero performed for pressure channel P1 9:51:29 Zero performed for pressure channel P1 10:05:50 Versed 0.5 mg was administered by Cathy Bustillo RN; for sedation; Verbal order read back and verified. 10:05:55 Fentanyl 25 mcg I.V. was administered by Cathy Bustillo RN; for sedation; Verbal order read back and verified. 10:07:33 Procedure started. 10:07:49 Local anesthetic to right femoral artery with Lidocaine 2% by Micha Chaparro MD.INITIAL ACCESS ONLY 10:18:06 left groin prepped in sterile fashion 10:18:18 Versed 0.5 mg was administered by Cathy Bustillo RN; for sedation; Verbal order read back and verified. 10:18:21 Fentanyl 25 mcg I.V. was administered by Cathy Bustillo RN; for sedation; Verbal order read back and verified. 10:19:15 WHOLEY 300cm 0.035 wire ([id number]) opened to sterile field. 10:20:32 A 5 Fr sheath was inserted into the Right Femoral artery 10:20:42 wholey wire advanced. 10:22:34 Wire removed. 10:22:43 A MULTIPACK JL 4.0 5Fr catheter was advanced over the wire and used for Left Coronary Angiography. 10:24:39 LCA angiography performed. 10:24:53 Injector settings: Ml/sec: 3, Volume: 6, 10:26:25 Catheter removed. 10:28:25 A DIAGNOSTIC AR MOD 5Fr Catheter ([id number]) was advanced over the wire and used for Multi-vessel Angiography. 10:28:59 Catheter removed. unable to cannulate vessel. 10:29:56 A DIAGNOSTIC LCB 5Fr catheter ([id number]) was advanced over the wire and used for Multi-vessel Angiography. 10:30:50 Catheter removed. unable to cannulate vessel. 10:31:05 A DIAGNOSTIC AR2 MOD 5 Fr catheter ([id number]) was advanced over the wire and used for Multi-vessel Angiography. 10:33:10 Catheter removed. 10:33:23 A DIAGNOSTIC IM 5Fr catheter ([id number]) was advanced over the wire and used for SVG Angiography. 10:35:30 CAMACHO to LAD angiography performed. 10:35:50 Catheter removed. 10:35:58 A MULTIPACK Pigtail 5 Fr catheter was advanced over the wire and used for LV Angiography. 10:38:02 LV hemodynamics recorded. 10:38:03 LV gram done using [place] 10:38:05 Injector settings: Ml/sec: 5, Volume: 15, 10:38:18 Versed 0.5 mg was administered by Cathy Bustillo RN; for sedation; Verbal order read back and verified. 10:38:20 EF : 55 % 10:38:32 Aortic Root visualized 10:38:37 Injector settings: Ml/sec: 10, Volume: 20, 10:40:54 Catheter removed. 10:40:59 EXOSEAL 5Fr (EX500) opened to sterile field. 10:41:41 Sheath removed intact; hemostasis achieved with Exoseal to the Right Femoral artery. 10:41:43 Procedure ended.(Physican Out) 10:44:00 Fluoroscopy time 08.90 minutes. 10:44:04 Flurop Dose total: 1576 10:44:04 Fluoroscopy dose: 1576 mGy 10:44:10 Dose Area Product 86062 mGy/cm. 10:44:16 Contrast amount:Isovue 300 112ml. 10:44:18 Maximum allowable dose exceeded? No. 10:44:18 Sharps counted by scrub and verified by R.N. 10:44:20 Insertion/operative site no bleeding no hematoma. 10:44:22 Post-op/insertion site Right Femoral artery dressed using a 4 x 4 and Tegaderm. 10:44:24 Post Procedure Pulses reassessed and unchanged 10:44:27 Post procedure rhythm: unchanged. 10:44:29 Estimated blood loss: 5 ml 10:44:30 Post procedure instruction explained to patient.Patient verbalizes understanding. 10:44:30 Patient needs reinforcement of post procedure teaching. 10:44:57 Procedure type changed to Cath procedure, Diagnostic procedure, LHC, C w/Coronaries w/Grafts, Sedation Charges, Moderate Sedation up to 45 minutes 10:44:58 Procedure and supply charges have been captured, reviewed, submitted and are correct. 10:45:02 Procedure Complication : No complications 10:45:04 Vital chart was stopped 10:45:10 [facility] Findings: MVD- MD will discuss options w/ pt 10:45:12 Operative report dictated upon procedure completion. 10:45:12 See physician's report for complete and final results. 10:45:14 Report given to Pre/Post Procedure Room. 10:45:17 Patient transfered to Pre/Post Procedure Room with Stretcher. 10:45:18 Procedure ended. 10:45:18 Full Disclosure recording stopped 10:45:26 End room use (Document Last) 10:46:17 End room use (Document Last) Device Usage Item Name Manufacture Quantity Catalog Hospital Part Current Minimal L ot# / Number Charge Number Stock Stock Serial# Code ACIST Acist 1 42069 238799 483100 [id number] 20 Syringe Medical (49617) Systems Inc Bag Microtek 1 817549 42057 421080 5 Decanter Medical Inc. () Medline Medline 1 [id number] 001689 05435 793156 5 Cath Pack ([id number]) ACIST Hand Acist 1 23282 186731 873807 121019 5 Control Medical (71517) Systems Inc ACIST Acist 1 69668 289401 088167 836149 5 Manifold Medical (99126) Systems Inc DIAGNOSTIC Cardinal 1 PP1338 479355 50127 186013 30 Multipack Health 5Fr catheter set (RU9069) Tegaderm 4 3M 1 1626W 105567 482103 890743 5 x 4 (1626W) SHEATH 5FR Terumo 1 BYK373 554667 039674 166481 5 [place] (ARO212) EMERALD Cardinal 1 502-455 043837 433631 549776 5 Guide Wire Health (502-455) WHOLE Medtronic 1 [id number] 596594 625798 310240 3 300cm 0.035 wire ([id number]) MULTIPACK Cardinal 1 005830 5 JL 4.0 5Fr Health catheter DIAGNOSTIC Cardinal 1 168277E 735107 456986 906905 15 AR MOD 5Fr Health Catheter (431255Q) DIAGNOSTIC Cardinal 1 [id number] 611157 042528 734056 5 LCB 5Fr Health catheter (822593B) DIAGNOSTIC Cardinal 1 936155E 646291 082709 727186 20 AR2 MOD 5 Health Fr catheter (703085A) DIAGNOSTIC Cardinal 1 [id number] 503137 074685 671911 5 IM 5Fr Health catheter (167351G) MULTIPACK Cardinal 1 402654 5 Pigtail 5 Health Fr catheter EXOSEAL 5Fr Cardinal 1 EX500 484824 488076 604276 10 (EX500) Health Signature Audit [place] Stage Time Signature Unsigned Intra-Procedure 10/24/2019 Ami Matthews 10:46:17 AM RT(R) Intra-Procedure 10/24/2019 Micha Chaparro MD 10:47:34 AM Signatures Performing Physician : Signature : Micha Chaparro MD Date : Time : Monitor : Ami Matthews RT Signature : Date : Time : Nurse : Cathy Bustillo, Signature : RN Date : Time : Nurse : Cathy Bustillo, Signature : RN Date : Time : [address] [place] [address]
[2019-10-24 08:33] VITALS: BP 142/64; Ht 170.2 cm; Wt 126.0 kg
[2019-10-24] MEDS ORDERED: TOPROL XL50 MG PO (08:55)
[2019-10-24] MEDS ORDERED: VALSARTAN-HCTZ1 EAC3 PO (08:58)
[2019-10-24] MEDS ORDERED: LIPITOR40 MG PO (08:59)
[2019-10-24 09:08] LABS: ALT (SGPT) 40 U/L (10-68); CALC OSMOLALITY 291 mosm/kg (275-300); CALCIUM 8.7 mg/dL (8.5-10.1); CARBON DIOXIDE 27.4 mmol/L (21.0-32.0); CHLORIDE - SERUM 104 mmol/L (98-107); CHOL - HDL RATIO 6.7 ratio (2.3-4.9); CHOLESTEROL, TOTAL 160 mg/dL (0-200); CREATININE - SERUM 1.8 mg/dL (0.6-1.3); GLUCOSE 201 mg/dL (74-106); HDL CHOLESTEROL 24 mg/dL (32-96); POTASSIUM - SERUM 4.4 mmol/L (3.5-5.1); SODIUM 138 mmol/L (136-145); TRIGLYCERIDE 574 mg/dL (30-200); UREA NITROGEN 40 mg/dL (7-18); eGFR NON AFRICAN AMERICAN 40 mL/min (90-120)
[2019-10-24 09:10] LABS: BASOPHILS 1.1 % (0-2); EOSINOPHILS 4.7 % (0-7); HEMATOCRIT 41.1 % (42.0-54.0); HEMOGLOBIN 13.5 g/dL (13.5-17.5); IMMATURE GRANULOCYTES 0.4 % (0-5); LYMPHOCYTES 20.1 % (15-50); MCH 32.5 pg (26.0-34.0); MCHC 32.8 g/dL (31.0-37.0); MCV 98.8 fL (80.0-100.0); MEAN PLATELET VOLUME 10.5 fL (7.4-10.4); MONOCYTES 9.7 % (2-11); PLATELET COUNT 237 10x3/uL (130-400); RBC 4.16 10x6/uL (4.20-6.10); RDW 14.2 % (11.5-14.5); WBC 7.4 10x3/uL (4.8-10.8)
--- NOTE | 2019-10-24 10:55 | NUR ---
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 MONITORS ESTAB. PT DROWSY, FAMILY AT BS. SEE DRIVE MAN. ALARMS ON AND C/L IN REACH.
--- NOTE | 2019-10-24 11:10 | NUR ---
R GROIN SITE SOFT, NO S/S BLEEDING OR HEMATOMA. PULSES PALP. PT TAKING FEW ICE CHIPS WITHOUT DIFFICULTY. VSS. FAMILY AT .
--- NOTE | 2019-10-24 11:40 | NUR ---
PT RESTING QUIETLY, R GROIN SITE SOFT, NO S/S BLEEDING OR HEMATOMA. PULSES PALP. ALARMS ON AND C/L IN REACH.
--- NOTE | 2019-10-24 12:05 | NUR ---
R GROIN SITE SOFT, C/D/I. HOB ELEVATED. SANDWICH TRAY PROVIDED, AT BS ASSISTING. VSS. POX 94% ON RA. ALARMS ON AND C/L IN REACH.
--- NOTE | 2019-10-24 12:30 | NUR ---
VSS. R GROIN SITE SOFT, NO S/S OF BLEEDING OR HEMATOMA, PULSES PALP. PT ATE ALL OF SANDWICH, DENIES NEEDS. FAMILY AT BS.
--- NOTE | 2019-10-24 13:00 | NUR ---
R GROIN SITE SOFT, C/D/I. PIV D/C'D INTACT, DSG APPLIED. PT ALLOWED UP TO GET DRESSED WITH ASSISTANCE.
--- NOTE | 2019-10-24 13:28 | NUR ---
ALL D/C INSTRUCTIONS REVIEWED WITH PT AND FAMILY - INCLUDING RESTRICTIONS, MEDS AND F/U APPT.
--- NOTE | 2019-10-24 13:30 | NUR ---
PT D/C'D TO PRIVATE VEHICLE WITH ALL PAPER WORK AND BELONGINGS.
== END 2019-10-24 13:30 | disposition home or self-care (01) ==
LOC: D.CATH 07:44
PROVIDERS: ATTEND Internal Medicine Cardiovascular Disease
DX: I25.119 Atherosclerotic heart disease of native coronary artery with unspecified angina pectoris (principal); R94.39 Abnormal result of other cardiovascular function study; E11.9 Type 2 diabetes mellitus without complications; I10 Essential (primary) hypertension; Z79.84 Long term (current) use of oral hypoglycemic drugs; K21.9 Gastro-esophageal reflux disease without esophagitis; R07.9 Chest pain, unspecified; I48.0 Paroxysmal atrial fibrillation

== ENCOUNTER 2019-12-11 11:39 | Day surgery (SDC) | payer MEDICARE, BC ==
[~2019-12-11] VITALS: Ht 170.2 cm; Wt 124.5 kg
[~2019-12-11 11:39] MED LIST changes: +LIPITOR40 MG PO; +TOPROL XL50 MG PO; +VALSARTAN-HCTZ1 EAC3 PO
[2019-12-11 12:12] LABS: BASOPHILS 1.1 % (0-2); EOSINOPHILS 3.2 % (0-7); HEMATOCRIT 41.7 % (42.0-54.0); HEMOGLOBIN 13.6 g/dL (13.5-17.5); IMMATURE GRANULOCYTES 0.3 % (0-5); LYMPHOCYTES 19.3 % (15-50); MCH 31.7 pg (26.0-34.0); MCHC 32.6 g/dL (31.0-37.0); MCV 97.2 fL (80.0-100.0); MEAN PLATELET VOLUME 9.7 fL (7.4-10.4); MONOCYTES 9.6 % (2-11); NEUTROPHILS 66.5 % (40-80); PLATELET COUNT 198 10x3/uL (130-400); RBC 4.29 10x6/uL (4.20-6.10); RDW 14.3 % (11.5-14.5); WBC 6.5 10x3/uL (4.8-10.8)
[2019-12-11 12:28] LABS: ANION GAP 10.8 mmol/L (8-16); CARBON DIOXIDE 30.4 mmol/L (21.0-32.0); CREATININE - SERUM 1.7 mg/dL (0.6-1.3); POTASSIUM - SERUM 4.2 mmol/L (3.5-5.1)
[2019-12-11] MEDS ORDERED: PRAVACHOL40 MG PO (12:54)
[2019-12-11 13:02] VITALS: BP 178/91; Ht 170.2 cm; Wt 124.5 kg
--- NOTE | 2019-12-11 14:27 | NUR ---
DC INSTRUCTIONS GIVEN TO PT/SPOUSE. STATE UNDERSTANDING. DC'D IV CATH FULLY INTACT. WILL DC SHORTLY.
--- NOTE | 2019-12-12 15:26 | OP ---
PATIENT NAME: GIANNA GREER MEDICAL RECORD: [id number] :49 LOCATION:[facility] ADMISSION DATE: SURGEON: BREEZY BENNETT DO DATE OF OPERATION: 12/11/2019 PROCEDURE: EGD with biopsies. 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 The patient's last surveillance endoscopy was 08/19/2017. SCOPE: Olympus video gastroscope. MEDICATIONS: Propofol 150 mg IV per anesthesia. ESTIMATED BLOOD LOSS: Minimal. COMPLICATIONS: None. FINDINGS: Informed consent was given. The patient was made comfortable with the above medication. After reaching an adequate level of sedation by slow IV push, the patient was placed on his left side. The endoscope was advanced under direct visualization through the mouth to the second portion of the duodenum with ease. The upper, middle, and lower thirds of the esophagus appeared normal. At the GE junction, there was evidence of LA class A reflux-induced esophagitis and possible Dumont's mucosa. Cold forceps, biopsies were taken from the GE junction to rule out the presence of Dumont's. The endoscope was advanced beyond the GE junction into the stomach and retroflexed to view the cardia and fundus, which appeared normal. The body of the stomach also appeared normal. In the antrum and prepyloric region, there was some erythema and granularity consistent with mild chronic gastritis. Cold forceps, biopsies were taken to submit for histopathology and to rule out the presence of H. pylori. The endoscope was advanced beyond the pylorus into the duodenal bulb where there was some erythema and granularity. This is felt to likely be reactive in nature. Cold forceps biopsies were taken to submit for histopathology. The second portion of the duodenum appeared normal. The endoscope was withdrawn from the patient. The patient tolerated the procedure well and there were no complications. IMPRESSION: 1. LA class A reflux-induced esophagitis. Biopsies were taken to rule out the presence of Dumont's esophagus. 2. Mild chronic gastritis in the antrum. 3. Mild duodenitis of the duodenal bulb. PLAN AND RECOMMENDATIONS: 1. Discharge home when recovery parameters are met. 2. Follow up biopsy specimen results. 3. GERD diet and reflux precautions. 4. Continue current medications. 5. Recall EGD will be dependent on results of biopsies. In review of past upper endoscopies, there has never been a firm diagnosis of Dumont's esophagus. The original diagnosis was made in 2009 at [facility], but has not been confirmed on three past EGDs. TRANSINT:[id number] Voice Confirmation ID: [id number] DOCUMENT ID: [id number] OPERATIVE REPORT [id number] GIANNA GREER NATHAN A DO at 1526 CC: [id number] DICTATION DATE: 12/11/19 1356 [employer] TRAINER: 12/11/19 2237 [facility] 12/11/[address] [id number]
== END 2019-12-11 14:30 | disposition home or self-care (01) ==
LOC: D.OPS 11:39
PROVIDERS: Anesthesiology; ATTEND Internal Medicine Gastroenterology
DX: K21.0 Gastro-esophageal reflux disease with esophagitis (principal); K29.50 Unspecified chronic gastritis without bleeding; E11.9 Type 2 diabetes mellitus without complications; Z79.4 Long term (current) use of insulin

== ENCOUNTER → 2020-07-08 12:46 | Outpatient (CLI) | payer MEDICARE, BC ==
[2019-12-11 13:02] VITALS: BMI 43.0
== END | disposition home or self-care (01) ==
LOC: D.HCCECHO 12:46
PROVIDERS: ATTEND Internal Medicine Cardiovascular Disease
DX: I10 Essential (primary) hypertension (principal)

== ENCOUNTER → 2020-08-06 09:26 | Outpatient (CLI) | payer MEDICARE, BC ==
[2019-12-11 13:02] VITALS: BMI 43.0
--- NOTE | 2020-08-07 11:32 | ST ---
PATIENT:GIANNA GREER MEDICAL RECORD: [id number] SEX: M LOCATION:[facility] ORDER #: ADMISSION DATE: 08/06/20 AGE OF PATIENT: 74 REFERRING PHYSICIAN: INTERPRETING PHYSICIAN: KARELY ARREOLA MD DATE OF SERVICE: 08/06/2020 PROCEDURE: Nuclear stress test. GATED: Gated shows decreased thickening and hypokinesis of the inferior base. Overall, LV function mildly reduced at 45%. SPECT IMAGIN. Short axis view shows a fixed inferobasilar defect without significant reversibility. This was confirmed in a horizontal axis with a fixed inferior basal defect. No significant reversibility. 2. Vertical axis: Vertical axis shows good uptake along the septum. FINAL IMPRESSION: 1. Abnormal gated with abnormal wall motion, decreased EF 45%. 2. Abnormal SPECT imaging with fixed defect seen in 2 views. Defect size is medium. Defect severity is mild. FINAL IMPRESSION: This scan is consistent with known disease, no active ischemia is noted. LV function is mildly reduced. Continue medical management and risk factor modification is recommended. TRANSINT:[id number] Voice Confirmation ID: [id number] DOCUMENT ID: [id number] KARELY ARREOLA MD at 1132 CC: [id number] DICTATION DATE: 08/06/20 1605 LEVI MAKER: 08/07/20 0932 [facility] CLI 08/06/[address] [id number]
== END | disposition home or self-care (01) ==
LOC: D.HCCARDIO 09:26
PROVIDERS: ATTEND Internal Medicine Interventional Cardiology
DX: I25.10 Atherosclerotic heart disease of native coronary artery without angina pectoris (principal)